=== PATIENT | female | born 1970 | race Caucasian/White ===

== ENCOUNTER 2022-06-06 10:06 | Outpatient (CLI) | payer BC, SELFPAY | END 2022-06-06 10:07 | disposition home or self-care (01) | PROVIDERS: PCP Family Medicine; Visit Provider Family Medicine | DX: R41.82 Altered mental status, unspecified (principal); R42 Dizziness and giddiness | CPT/HCPCS: A0425; A0427 ==

== ENCOUNTER 2022-06-06 10:30 | Emergency (ER) | payer BC, SELFPAY ==
[2022-06-06 10:36] VITALS: BP 118/86; PULSE 73; RESP 16; TEMP 36.5; O2SAT 100; BMI 21.3
--- NOTE | 2022-06-06 10:58 | ED.GENADULT ---
HPI - General Adult General Chief complaint: Syncope/Fainted Stated complaint: Syncopal Time Seen by Provider: 06/06/22 10:52 Source: patient Mode of arrival: EMS Limitations: no limitations History of Present Illness HPI narrative: 51-year-old female coming in today after a presyncopal episode at work. Patient was working with some heavy machinery that she had to move and her finger got pinched between 2 pieces heavy machinery. She states that is sent a jolt of pain up into her arm and made her feel lightheaded. She sat down with her head between her legs, but still felt faint so she went to lay down on a bench. She laid on the bench for a few minutes and then felt better. However by that time EMS had already been called and they recommended she be evaluated in the ED. She states that she did not lose consciousness. And she that she feels fine now. She denies any nausea or vomiting. She does have a history of migraine headaches but denies any headache today. She denies any recent illness. She denies any chest pain or palpitations. No abdominal discomfort. She denies any changes in her vision or hearing. No focal neurologic deficits or weakness. Patient is requesting discharge. Her past medical history significant for migraine headaches, depression and anxiety. She did suffer the loss of a child. She is on Imitrex as needed, daily amitriptyline, and daily Prozac. Related Data Home Medications Medication Instructions Recorded Confirmed amitriptyline 50 mg tablet mg 06/06/22 fluoxetine 20 mg capsule mg 06/06/22 hydroxyzine HCl 50 mg tablet mg 06/06/22 sumatriptan 20 mg/actuation nasal mg intranasal 06/06/22 spray (Imitrex) sumatriptan succinate 100 mg tablet mg PO 06/06/22 Allergies Allergy/AdvReac Type Severity Reaction Status Date / Time No Known Allergies Allergy Unknown Unverified 05/13/22 16:03 Review of Systems Status of ROS: Reports: 10 or more systems reviewed and unremarkable except as noted in History and below [facility] Social History Smoking Status: Never smoker Do you use any of these nicotine containing products: None Second hand tobacco smoke exposure: No How often do you have a drink containing alcohol: never How often do you have six or more drinks on one occasion: Never AUDIT-C Alcohol total score: 0 Non-prescribed substance use: denies use service: No Exam Narrative: Exam Narrative: Well-nourished well-developed patient in no acute distress. Alert and oriented. Answers questions appropriately. Mood and affect are appropriate. Thoughts are goal oriented and rational. No tangential or magical thinking noted. Patient speaks in full sentences without needing to catch their breath. Speech is not slurred or pressured. No word-finding difficulty. HEENT: Normocephalic atraumatic. Pupils are equally round reactive to light. Extraocular muscles are intact. Conjunctivae are moist without any icterus noted. Moist mucous membranes. Posterior pharynx is normal. Neck is soft without any lymphadenopathy or thyromegaly. No masses are appreciated. Cardiovascular: Heart is regular rate and rhythm S1 and S2 are present without any murmurs. Lungs: Clear to auscultation bilaterally no wheezes rhonchi or rales are appreciated. Patient takes deep breaths without any discomfort. Abdomen: Soft and nontender nondistended with normal bowel sounds. No guarding or rebound. No masses or organomegaly appreciated. Extremities: Bilateral lower extremities are without edema. Normal DP and PT pulses. Her pinched finger which is the middle finger on the left looks fine. There is no significant swelling, ecchymosis or erythema noted. Is not tender to palpation. Skin: Well perfused without any obvious rashes. Strength is 5/5 of the upper and lower extremities. Reflexes are 2+ and symmetric at the knees. Romberg sign is negative. Cranial nerves 3-12 are normal. [id number] is normal. [id number] is normal. There is no nystagmus either horizontally or vertically. Gait is normal. Const: Vital Signs, click to edit/add: Vital Signs - 24 hr 06/06/22 10:36 Temperature 97.7 F Pulse Rate [Left P ulse Oximeter] 73 Respiratory Rate 16 Blood Pressure [Ri ght Upper Arm] 118/86 Pulse Oximetry 100 Oxygen Delivery Me thod Room Air Course Vital Signs Vital signs: Initial Vital Signs Temperature 97.7 F 06/06/22 10:36 Temperature Source Temporal Artery Scan 06/06/22 10:36 Pulse Rate 73 06/06/22 10:36 Pulse Rhythm 06/06/22 10:36 Pulse Strength 3+ Normal 06/06/22 10:36 Respiratory Rate 16 06/06/22 10:36 Blood Pressure 118/86 06/06/22 10:36 Blood Pressure Mean 96 06/06/22 10:36 Blood Pressure Position Supine 06/06/22 10:36 Pulse Oximetry 100 06/06/22 10:36 Oxygen Delivery Method 06/06/22 10:36 Vital Signs Temperature 97.7 F 06/06/22 10:36 Pulse Rate 73 06/06/22 10:36 Respiratory Rate 16 06/06/22 10:36 Blood Pressure 118/86 06/06/22 10:36 Pulse Oximetry 100 06/06/22 10:36 Oxygen Delivery Method 06/06/22 10:36 Temperature 97.7 F 06/06/22 10:36 Pulse Rate 73 06/06/22 10:36 Respiratory Rate 16 06/06/22 10:36 Blood Pressure 118/86 06/06/22 10:36 Pulse Oximetry 100 06/06/22 10:36 Oxygen Delivery Method 06/06/22 10:36 Medical Decision Making MDM Narrative Medical decision making narrative: 51-year-old female status post a presyncopal episode after pinching her finger. No residual symptoms. At this time we discussed that likely she felt lightheaded secondary to pain. We discussed the need for re-evaluation of other symptoms recur. We discussed following up as needed. We discussed reasons to return to the ER. Patient felt comfortable with this and had no other questions. Discharge Plan Discharge Clinical Impression: Light-headed Patient Disposition: Home, Self-Care Condition: Improved Additional Instructions: Return to the ER if you develop similar symptoms. Return to the ER if you develop chest pain or shortness of breath. Otherwise follow-up with your primary care provider as needed. Prescriptions: No Action sumatriptan succinate 100 mg tablet PO Label Comments: TAKE 1 TABLET BY MOUTH TWICE DAILY NEEDED FOR MIGRAINE. GIVE AT A MINIUMUM OF 2 HOURS APART. MAX DOSE 200MG PER 24 HOURS hydroxyzine HCl 50 mg tablet Label Comments: TAKE 1/2 TO 1 TABLET BY MOUTH AT BEDTIME NEEDED amitriptyline 50 mg tablet sumatriptan [Imitrex] 20 mg/actuation spray,non-aerosol INTRANASAL Label Comments: SPRAY 1 SPRAY INTO THE NOSTRIL EVERY 2 HOURS NEEDED NO MORE THAN 2 SPRAYS IN 24 HOURS fluoxetine 20 mg capsule Follow Up/Referrals: Provider,Not a Local [Primary Care Provider] - Stand Alone Forms: [employer] Info Instructions
== END 2022-06-06 11:30 | disposition home or self-care (01) ==
LOC: ED 11:15
PROVIDERS: Emergency Provider Family Medicine; PCP Family Medicine
DX: R55 Syncope and collapse (principal)
CPT/HCPCS: 99282; 99283

== ENCOUNTER 2022-11-05 20:20 | Outpatient (CLI) | payer BC, SELFPAY | END 2022-11-05 20:21 | disposition home or self-care (01) | LOC: AMB 11-06 23:41 | PROVIDERS: PCP Family Medicine; Visit Provider Family Medicine | DX: R10.9 Unspecified abdominal pain (principal); R45.851 Suicidal ideations; T43.622A Poisoning by amphetamines, intentional self-harm, initial encounter; Y92.009 Unspecified place in unspecified non-institutional (private) residence as the place of occurrence of the external cause | CPT/HCPCS: A0425; A0427 ==

== ENCOUNTER 2022-11-05 20:52 | Inpatient (IN) | payer BC, SELFPAY ==
[2022-11-05] VITALS (7 sets, daily range): BP systolic 111–161; BP diastolic 64–83; PULSE 65–78; RESP 16–20; TEMP 36.6; O2SAT 96–100; BMI 20.4
--- NOTE | 2022-11-05 21:04 | ED.GENADULT ---
HPI - General Adult General Time Seen by Provider: 21:04 Date Seen: 11/05/22 Chief complaint: Abdominal Pain Stated complaint: Abdominal pain Time Seen by Provider: 11/05/22 20:53 Source: patient, EMS and RN notes reviewed Mode of arrival: EMS Limitations: no limitations History of Present Illness HPI narrative: Patient was brought in by EMS for concern of abdominal pain accompanied with subsequent nausea vomiting and dark tarry stools starting today. EMS was called to her house. They did give her 25 mcg of fentanyl and 2 mg IV Versed in route. She reportedly attempted to take Adderall last Friday in attempt to harm herself. She got this from a friend that she was with. She does not feel like it was Adderall as when she has taken Adderall in the past it felt much different. She states this did nothing. However, she states she blacked out and woken him is early with this friend. They then drove back. of last week she attempted to take 25 tablets of Advil p.m.. She has reportedly use some alcohol recently. She is presenting tonight because of the abdominal pain. Again, called EMS. She is denying acute suicidality at this time. Related Data Home Medications Medication Instructions Recorded Confirmed amitriptyline 50 mg tablet mg 06/06/22 fluoxetine 20 mg capsule mg 06/06/22 hydroxyzine HCl 50 mg tablet mg 06/06/22 sumatriptan 20 mg/actuation nasal mg intranasal 06/06/22 spray (Imitrex) sumatriptan succinate 100 mg tablet mg PO 06/06/22 Allergies Allergy/AdvReac Type Severity Reaction Status Date / Time No Known Allergies Allergy Unknown Unverified 11/05/22 23:19 Review of Systems Narrative: Limited on initial arrival due to patient's pain and medications given in route. [facility] Social History Smoking Status: Never smoker Do you use any of these nicotine containing products: None Second hand tobacco smoke exposure: No How often do you have a drink containing alcohol: never How often do you have six or more drinks on one occasion: Never AUDIT-C Alcohol total score: 0 Non-prescribed substance use: denies use service: No Exam Const: Vital Signs, click to edit/add: Vital Signs - 24 hr 11/05/22 21:01 11/05/22 21:07 11/05/22 22:01 Temperature 97.8 F Pulse Rate 74 Pulse Rate [Pulse Oximeter] 78 Respiratory Rate 20 20 Blood Pressure 111/76 Blood Pressure [Ri ght Upper Arm] 126/64 Pulse Oximetry 96 98 100 Oxygen Delivery Me thod Room Air 11/05/22 21:00 11/05/22 21:32 11/05/22 22:32 Temperature Pulse Rate 65 Pulse Rate [Pulse Oximeter] 78 74 Respiratory Rate 16 16 Blood Pressure 117/73 Blood Pressure [Ri ght Upper Arm] 161/83 H 114/71 Pulse Oximetry 100 100 100 Oxygen Delivery Me thod Room Air Room Air 11/05/22 23:01 Temperature Pulse Rate 67 Pulse Rate [Pulse Oximeter] Respiratory Rate Blood Pressure 112/80 Blood Pressure [Ri ght Upper Arm] Pulse Oximetry 96 Oxygen Delivery Me thod Documenting provider has reviewed patient's vital signs: yes Common normals: oriented x3 and alert General appearance: cooperative Nutritional appearance: thin Other: Was initially resting but after I came in started writhing in pain stating her belly hurt. Could open her eyes with prompting but kept him close most the time. Speech was normal when talking but often was moaning and groaning stating her abdomen hurt. When asked her to point were abdomen hurts she pointed to the left upper quadrant. HENMT: Common normals: normocephalic, head/scalp atraumatic, hearing grossly normal bilaterally, external ears normal, external nose normal, nasal mucous membranes and turbinates normal, moist oral mucous membranes, oropharynx normal, dentition normal and gingiva normal Head and scalp: normocephalic and atraumatic Nose: external nose normal and nasal mucous membranes and turbinates normal External ear: external ears normal Other: Has slightly round red lesion outside of the right lip that looks like it could be an early HSV lesion. Eye: Common normals: PERRL, EOMs intact bilaterally, conjunctivae normal and no scleral icterus Conjunctiva: conjunctiva(e) normal Pupil: PERRL Neck & C-Spine: Common normals: full ROM, no lymphadenopathy, supple, no meningeal signs, no JVD and thyroid normal Thyroid: thyroid normal Chest: Common normals: inspection of chest normal and palpation of chest normal Resp: Common normals: normal respiratory effort, no retractions, no use of accessory muscles and clear to auscultation bilaterally Auscultation: clear to auscultation bilaterally Cardio: Common normals: no JVD, regular rate, regular rhythm, S1 normal heart sound, S2 normal heart sound, no gallops, no clicks, no murmurs and no rub Rate: regular rate Rhythm: regular rhythm Heart sounds: S1 normal and S2 normal GI: Other: Patient is thin, has occasional bowel sounds. Certainly hear no rushing or tympanitic type bowel sounds. I feel no masses, she is complaining of diffuse pain throughout her abdomen. Cannot really say that she has rebound or guarding. She does ride during this time when I am attempting to palpate her abdomen. Extremity: Common normals: no calf tenderness and no pedal edema Neuro: Common normals: oriented x3, CN's II-XII intact bilaterally, moves all extremities, no focal motor deficits and no sensory deficits noted Sensorium/orientation: alert Meningeal signs: no meningeal signs Speech: speech normal Psych: Other: This time she is in pain, difficult to assess a true mental status on her. She did get Versed and fentanyl EN route with EMS. She is stating that she is not suicidal at this time but definitely endorses attempts multiple times recently to take medicines for the purposes of harming herself. Course Course Hospital Course: Patient will be on pulse oximetry and cardiac monitoring. Will need to get an EKG, nursing staff is going to call poison Control. We will be obtaining a full complement of labs. I would like to obtain a stool guaiac on her and will hopefully do that soon. Am going to give her Protonix 80 mg IV in the interim. She certainly could have an upper GI bleed. See no evidence any acute changes that make me concerned for esophageal varices. We need to further workup her complaint of abdominal pain and the potential recent ingestions. Both of these ingestions happened reportedly last week, no reported new ingestions. We will attempt to get toxicology done on her as quickly as possible. I will initiate 1 L of IV fluids. Right now her vitals are stable. Reevaluation(s) Reevaluation #1: Patient had about a 600 mL emesis. Will give her 1 dose of IV Zofran. Still do not have her EKG. Protonix is not been given yet. Time: 21:23 Reevaluation #2: Patient's stool guaiac was done. It is negative. She had scant amount of stool in the rectal vault. External anus was normal on inspection. Durand no masses in the rectal vault. Patient is moaning and complaining of abdominal pain. Have reviewed her labs. Her kidney function is completely normal, no really notable changes with any of her labs. We still have not collected urine. We will try 15 mg IV Toradol and obtain CT abdomen pelvis with IV contrast. Time: 22:19 Reevaluation #3: Have reviewed with patient the CT findings of small-bowel obstruction. She states she feels much better with the Toradol, pain is relieved. She is not nauseated right now. Again, patient did have a large emesis after arrival. She is advised to let us know if she is having further pain or nausea. Did discuss with her she may need to have NG tube placement. I have also ordered telehealth and she understands why we need to do this. She has not demonstrated acute suicidality at this time but did have the verbalized 2 attempts of pill ingestion last week. As far as abdominal surgeries, she states she has had 3 prior C-sections and hysterectomy nothing else. Poison Control had no concerns regarding any acute management from the ingestions last week, would only be management of any untoward affects found, which we have not. Time: 23:48 Consultations Consultation #1: Spoke with our surgeon Dr. Mcarthur. We will admit this patient to the hospitalist service, have paged of Pasquale. She will plan on seeing the patient tomorrow morning. Time: 23:52 Consultation #2: Have spoken to [facility] hospitalist, they accept care of this patient. Telehealth should be completed at some point but is not the most urgent need. Patient is not demonstrating acute suicidality but do think someone should do more further in-depth discussion with her regarding the events of last week. She needs acute management for her small-bowel obstruction at this time. Time: 00:18 Vital Signs Vital signs: Initial Vital Signs Pulse Rate 78 11/05/22 21:00 Pulse Rhythm 11/05/22 21:00 Pulse Strength 3+ Normal 11/05/22 21:00 Respiratory Rate 16 11/05/22 21:00 Respiratory Effort 11/05/22 21:00 Respiratory Depth Normal 11/05/22 21:00 Blood Pressure 161/83 H 11/05/22 21:00 Blood Pressure Mean 109 11/05/22 21:00 Blood Pressure Position Supine 11/05/22 21:00 Pulse Oximetry 100 11/05/22 21:00 Oxygen Delivery Method 11/05/22 21:00 Vital Signs Pulse Rate 78 11/05/22 21:00 Respiratory Rate 16 11/05/22 21:00 Blood Pressure 161/83 H 11/05/22 21:00 Pulse Oximetry 100 11/05/22 21:00 Oxygen Delivery Method 11/05/22 21:00 Temperature 97.8 F 11/05/22 21:01 Pulse Rate 67 11/05/22 23:01 Respiratory Rate 20 11/05/22 22:01 Blood Pressure 112/80 11/05/22 23:01 Pulse Oximetry 96 11/05/22 23:01 Oxygen Delivery Method 11/05/22 21:32 Medical Decision Making Lab Data Lab results reviewed: Yes I reviewed the patient's lab results Labs: Lab Results 11/05/22 11/05/22 11/05/22 Range/Units 21:00 21:31 21:31 WBC 8.95 (4.50-11.00) K/uL RBC 4.52 (4.00-5.20) m/uL Hgb 14.4 (12.0-16.0) gm/dL Hct 43.4 (33.0-51.0) % MCV 96 (80-100) fL MCH 32 (26-34) pg MCHC 33 (32-36) gm/dL RDW Coeff of Thao 12.2 (11.5-15.5) % Plt Count 340 (140-440) K/uL Neut % (Auto) 65.7 (42.0-72.0) % Lymph % (Auto) 27.7 (20-44) % Henderson % (Auto) 4.5 (0.0-11.0) % Eos % (Auto) 1.7 (0.0-7.0) % Baso % (Auto) 0.3 (0.0-3.0) % Neut # (Auto) 5.88 (1.7-7.0) K/uL Lymph # (Auto) 2.48 (0.90-2.90) K/uL Henderson # (Auto) 0.40 (0.00-0.90) K/UL Eos # (Auto) 0.15 (0.00-0.50) K/uL Baso # (Auto) 0.03 (0.00-0.30) K/uL INR (0.91-1.10) APTT (23-33) Seconds Sodium 141 (135-149) mmol/L Potassium 3.5 L (3.6-5.1) mmol/L Chloride 105 (96-114) mmol/L Carbon Dioxide 27 (20-32) mmol/L BUN 22 (7-30) mg/dL Creatinine 0.6 (0.5-1.5) mg/dL Estimated Creat Clear 90.32 Estimated GFR 108 ml/min Glucose 103 (60-115) mg/dL Lactate (0.5-1.9) mmol/L Calcium 9.4 (8.4-10.6) mg/dL Total Bilirubin 0.4 (0.1-1.5) mg/dL Direct Bilirubin 0.2 (0.0-0.5) mg/dL AST 23 (12-35) U/L ALT 17 (4-35) U/L Alkaline Phosphatase 75 (40-150) U/L Total Protein 7.4 (6.0-8.3) g/dL Albumin 4.4 (3.3-5.0) g/dL Lipase (23-300) U/L TSH (0.270-4.200) uIU/mL Free T4 (0.70-1.85) ng/dL Urine Color (Yellow) Urine Appearance (Clear) Urine pH (5.0-8.5) Ur Specific [place] (1.000-1.030) Urine Protein (Negative) Urine Glucose (UA) (Negative) Urine Ketones (Negative) Urine Blood (Negative) Urine Nitrite (Negative) Urine Bilirubin (Negative) Urine Urobilinogen (0.2-1.0) Ur Leukocyte Esterase (Negative) Urine RBC (0-2) Urine WBC (0-5) Ur Squamous Epith Cells (None-Few) Amorphous Sediment (None) Urine Bacteria (None) Urine Mucus (None) Urine HCG, Qual (Negative) Salicylates (1.0-10) mg/dL Urine Opiates Screen (Negative) Ur Oxycodone Screen (Negative) Urine Methadone Screen (Negative) Ur Propoxyphene Screen (Negative) Acetaminophen < 10.0 L (10.0-30.0) ug/mL Ur Barbiturates Screen (Negative) U Tricyclic Antidepress (Negative) Ur Phencyclidine Scrn (Negative) Ur Amphetamines Screen (Negative) U Methamphetamines Scrn (Negative) U Benzodiazepines Scrn (Negative) Urine Cocaine Screen (Negative) U Marijuana (THC) Screen (Negative) Ur Drug Screen Comment Ethyl Alcohol (0.01-0.03) % SARS-CoV-2 (PCR) Negative SARS-CoV-2 (Negative) POC Troponin I (0.01-0.04) ng/ml 11/05/22 11/05/22 11/05/22 Range/Units 21:31 21:31 21:31 WBC (4.50-11.00) K/uL RBC (4.00-5.20) m/uL Hgb (12.0-16.0) gm/dL Hct (33.0-51.0) % MCV (80-100) fL MCH (26-34) pg MCHC (32-36) gm/dL RDW Coeff of Thao (11.5-15.5) % Plt Count (140-440) K/uL Neut % (Auto) (42.0-72.0) % Lymph % (Auto) (20-44) % Henderson % (Auto) (0.0-11.0) % Eos % (Auto) (0.0-7.0) % Baso % (Auto) (0.0-3.0) % Neut # (Auto) (1.7-7.0) K/uL Lymph # (Auto) (0.90-2.90) K/uL Henderson # (Auto) (0.00-0.90) K/UL Eos # (Auto) (0.00-0.50) K/uL Baso # (Auto) (0.00-0.30) K/uL INR 0.90 L (0.91-1.10) APTT 29 (23-33) Seconds Sodium (135-149) mmol/L Potassium (3.6-5.1) mmol/L Chloride (96-114) mmol/L Carbon Dioxide (20-32) mmol/L BUN (7-30) mg/dL Creatinine (0.5-1.5) mg/dL Estimated Creat Clear Estimated GFR ml/min Glucose (60-115) mg/dL Lactate 1.3 (0.5-1.9) mmol/L Calcium (8.4-10.6) mg/dL Total Bilirubin (0.1-1.5) mg/dL Direct Bilirubin (0.0-0.5) mg/dL AST (12-35) U/L ALT (4-35) U/L Alkaline Phosphatase (40-150) U/L Total Protein (6.0-8.3) g/dL Albumin (3.3-5.0) g/dL Lipase 80 (23-300) U/L TSH (0.270-4.200) uIU/mL Free T4 (0.70-1.85) ng/dL Urine Color (Yellow) Urine Appearance (Clear) Urine pH (5.0-8.5) Ur Specific [place] (1.000-1.030) Urine Protein (Negative) Urine Glucose (UA) (Negative) Urine Ketones (Negative) Urine Blood (Negative) Urine Nitrite (Negative) Urine Bilirubin (Negative) Urine Urobilinogen (0.2-1.0) Ur Leukocyte Esterase (Negative) Urine RBC (0-2) Urine WBC (0-5) Ur Squamous Epith Cells (None-Few) Amorphous Sediment (None) Urine Bacteria (None) Urine Mucus (None) Urine HCG, Qual (Negative) Salicylates < 1.0 L (1.0-10) mg/dL Urine Opiates Screen (Negative) Ur Oxycodone Screen (Negative) Urine Methadone Screen (Negative) Ur Propoxyphene Screen (Negative) Acetaminophen (10.0-30.0) ug/mL Ur Barbiturates Screen (Negative) U Tricyclic Antidepress (Negative) Ur Phencyclidine Scrn (Negative) Ur Amphetamines Screen (Negative) U Methamphetamines Scrn (Negative) U Benzodiazepines Scrn (Negative) Urine Cocaine Screen (Negative) U Marijuana (THC) Screen (Negative) Ur Drug Screen Comment Ethyl Alcohol < 0.01 L (0.01-0.03) % SARS-CoV-2 (PCR) (Negative) POC Troponin I (0.01-0.04) ng/ml 11/05/22 11/05/22 11/05/22 Range/Units 21:31 21:31 21:31 WBC (4.50-11.00) K/uL RBC (4.00-5.20) m/uL Hgb (12.0-16.0) gm/dL Hct (33.0-51.0) % MCV (80-100) fL MCH (26-34) pg MCHC (32-36) gm/dL RDW Coeff of Thao (11.5-15.5) % Plt Count (140-440) K/uL Neut % (Auto) (42.0-72.0) % Lymph % (Auto) (20-44) % Henderson % (Auto) (0.0-11.0) % Eos % (Auto) (0.0-7.0) % Baso % (Auto) (0.0-3.0) % Neut # (Auto) (1.7-7.0) K/uL Lymph # (Auto) (0.90-2.90) K/uL Henderson # (Auto) (0.00-0.90) K/UL Eos # (Auto) (0.00-0.50) K/uL Baso # (Auto) (0.00-0.30) K/uL INR (0.91-1.10) APTT (23-33) Seconds Sodium (135-149) mmol/L Potassium (3.6-5.1) mmol/L Chloride (96-114) mmol/L Carbon Dioxide (20-32) mmol/L BUN (7-30) mg/dL Creatinine (0.5-1.5) mg/dL Estimated Creat Clear Estimated GFR ml/min Glucose (60-115) mg/dL Lactate (0.5-1.9) mmol/L Calcium (8.4-10.6) mg/dL Total Bilirubin (0.1-1.5) mg/dL Direct Bilirubin (0.0-0.5) mg/dL AST (12-35) U/L ALT (4-35) U/L Alkaline Phosphatase (40-150) U/L Total Protein (6.0-8.3) g/dL Albumin (3.3-5.0) g/dL Lipase (23-300) U/L TSH 5.540 H (0.270-4.200) uIU/mL Free T4 0.91 (0.70-1.85) ng/dL Urine Color (Yellow) Urine Appearance (Clear) Urine pH (5.0-8.5) Ur Specific [place] (1.000-1.030) Urine Protein (Negative) Urine Glucose (UA) (Negative) Urine Ketones (Negative) Urine Blood (Negative) Urine Nitrite (Negative) Urine Bilirubin (Negative) Urine Urobilinogen (0.2-1.0) Ur Leukocyte Esterase (Negative) Urine RBC (0-2) Urine WBC (0-5) Ur Squamous Epith Cells (None-Few) Amorphous Sediment (None) Urine Bacteria (None) Urine Mucus (None) Urine HCG, Qual (Negative) Salicylates (1.0-10) mg/dL Urine Opiates Screen (Negative) Ur Oxycodone Screen (Negative) Urine Methadone Screen (Negative) Ur Propoxyphene Screen (Negative) Acetaminophen (10.0-30.0) ug/mL Ur Barbiturates Screen (Negative) U Tricyclic Antidepress (Negative) Ur Phencyclidine Scrn (Negative) Ur Amphetamines Screen (Negative) U Methamphetamines Scrn (Negative) U Benzodiazepines Scrn (Negative) Urine Cocaine Screen (Negative) U Marijuana (THC) Screen (Negative) Ur Drug Screen Comment Ethyl Alcohol (0.01-0.03) % SARS-CoV-2 (PCR) (Negative) POC Troponin I 0.00 L (0.01-0.04) ng/ml 11/05/22 11/05/22 Range/Units 23:20 23:20 WBC (4.50-11.00) K/uL RBC (4.00-5.20) m/uL Hgb (12.0-16.0) gm/dL Hct (33.0-51.0) % MCV (80-100) fL MCH (26-34) pg MCHC (32-36) gm/dL RDW Coeff of Thao (11.5-15.5) % Plt Count (140-440) K/uL Neut % (Auto) (42.0-72.0) % Lymph % (Auto) (20-44) % Henderson % (Auto) (0.0-11.0) % Eos % (Auto) (0.0-7.0) % Baso % (Auto) (0.0-3.0) % Neut # (Auto) (1.7-7.0) K/uL Lymph # (Auto) (0.90-2.90) K/uL Henderson # (Auto) (0.00-0.90) K/UL Eos # (Auto) (0.00-0.50) K/uL Baso # (Auto) (0.00-0.30) K/uL INR (0.91-1.10) APTT (23-33) Seconds Sodium (135-149) mmol/L Potassium (3.6-5.1) mmol/L Chloride (96-114) mmol/L Carbon Dioxide (20-32) mmol/L BUN (7-30) mg/dL Creatinine (0.5-1.5) mg/dL Estimated Creat Clear Estimated GFR ml/min Glucose (60-115) mg/dL Lactate (0.5-1.9) mmol/L Calcium (8.4-10.6) mg/dL Total Bilirubin (0.1-1.5) mg/dL Direct Bilirubin (0.0-0.5) mg/dL AST (12-35) U/L ALT (4-35) U/L Alkaline Phosphatase (40-150) U/L Total Protein (6.0-8.3) g/dL Albumin (3.3-5.0) g/dL Lipase (23-300) U/L TSH (0.270-4.200) uIU/mL Free T4 (0.70-1.85) ng/dL Urine Color Yellow (Yellow) Urine Appearance Cloudy A (Clear) Urine pH 7.0 (5.0-8.5) Ur Specific [place] 1.015 (1.000-1.030) Urine Protein Trace A (Negative) Urine Glucose (UA) Negative (Negative) Urine Ketones Negative (Negative) Urine Blood Negative (Negative) Urine Nitrite Negative (Negative) Urine Bilirubin Negative (Negative) Urine Urobilinogen 0.2 (0.2-1.0) Ur Leukocyte Esterase 1+ A (Negative) Urine RBC 2-5 A (0-2) Urine WBC 5-10 A (0-5) Ur Squamous Epith Cells Few (None-Few) Amorphous Sediment Moderate A (None) Urine Bacteria Moderate A (None) Urine Mucus Moderate A (None) Urine HCG, Qual Negative (Negative) Salicylates (1.0-10) mg/dL Urine Opiates Screen Negative (Negative) Ur Oxycodone Screen Negative (Negative) Urine Methadone Screen Negative (Negative) Ur Propoxyphene Screen Negative (Negative) Acetaminophen (10.0-30.0) ug/mL Ur Barbiturates Screen Negative (Negative) U Tricyclic Antidepress Negative (Negative) Ur Phencyclidine Scrn Negative (Negative) Ur Amphetamines Screen Negative (Negative) U Methamphetamines Scrn Negative (Negative) U Benzodiazepines Scrn POSITIVE A* (Negative) Urine Cocaine Screen Negative (Negative) U Marijuana (THC) Screen Negative (Negative) Ur Drug Screen Comment See Note Ethyl Alcohol (0.01-0.03) % SARS-CoV-2 (PCR) (Negative) POC Troponin I (0.01-0.04) ng/ml Imaging Data CT scan - abdomen: Attestation: I have reviewed the pertinent imaging results. My impression: Reviewed her abdomen and pelvis CT with IV contrast, can see multiple small bowel dilated loops. Definitely is abnormal, await Radiology over-read. Radiologist's impression: Patient: CHUNG KIMBLE Facility:?[facility] Patient ID:?[id number] Site Patient ID:?[id number]. Site :?[id number] Study:?CT Abdomen/Pelvis w/ 56cc [id number] 11:28:12 PM Ordering Physician:?Sima Irene Final Report: INDICATION: Severe abdominal pain, nausea, vomiting, diarrhea. TECHNIQUE: CT abdomen and pelvis acquired with 100 cc Omnipaque 350 IV contrast. COMPARISON: None. FINDINGS: Lower chest: Mild pectus excavatum. The lung bases are clear. Liver: Unremarkable. Normal in size and attenuation. No suspicious masses. Gallbladder and bile ducts: Unremarkable. No stones or inflammation. No biliary dilatation. Pancreas: Unremarkable. No mass or inflammation. Spleen: Unremarkable. Normal in size. No masses. Adrenal glands: Unremarkable. No nodules. Kidneys: Punctate nonobstructing stone right kidney interpolar region. No suspicious masses, stones, or hydronephrosis. GI tract: Numerous dilated fluid-filled loops of small bowel throughout the abdomen with possible transition point in the right lower quadrant. Several distal small bowel loops as well as the colon are decompressed. Normal appendix. Vasculature: Normal caliber abdominal aorta with mild atherosclerotic calcification. Mesenteric arteries are patent. Lymph nodes: No lymphadenopathy. Peritoneum/Abdominal Wall: Unremarkable. No free air or significant free fluid. Pelvis: Status post hysterectomy Bones: Unremarkable for age. IMPRESSION: Numerous dilated fluid filled loops of small bowel throughout the abdomen, compatible with small bowel obstruction, with possible transition point in the right lower quadrant. Decompressed distal small bowel and colon. Punctate nonobstructing right nephrolith. Please note that all CT scans at this facility use dose modulation, iterative reconstruction, and/or weight-based dosing when appropriate to reduce radiation dose to as low as reasonably achievable. Dictated by Betito Grimes MD @ 11/05/2022 11:42:29 PM (Electronic Signature) ECG Data Attestation: I personally reviewed and interpreted this ECG as follows: (Sinus rhythm with sinus arrhythmia, 89 beats per minute. PVC seen. Underlying artifact. QT corrected 476 milliseconds.) Prior ECG tracings: not available for review Critical Care Time Critical Care Time Critical Care Time: No Discharge Plan Discharge Clinical Impression: Small bowel obstruction Patient Disposition: Admitted As Inpatient Condition: Stable
--- NOTE | 2022-11-05 21:10 | ED.NURSE ---
poison called. pt. took 25 tabs of advil/pm 38mg of benadryl and 200mg ibuprofen on friday at night, unsure what time. pt. comes in with severe abdominal cramping, black loose stools, nausea/vomting. denies drug use. recommendations: labs, ekg, supportive cars, iv fluids, lfts, kdney function. monitor for mental status changes, renal issues.
[2022-11-05] MEDS: 0.9 % SODIUM CHLORIDE 1000 ml 1,000 ML 500 ML IV (21:24)
[2022-11-05] MEDS: PANTOPRAZOLE SODIUM 40 MG INJ 80 MG IVP (21:25)
[2022-11-05 21:38] LABS: Lactate* 1.3 mmol/L (0.5-1.9)
[2022-11-05 21:42] LABS: Basophils Absolute Auto 0.03 K/uL (0.00-0.30); Basophils Percent Auto 0.3 % (0.0-3.0); Eosinophils Absolute Auto 0.15 K/uL (0.00-0.50); Eosinophils Percent Auto 1.7 % (0.0-7.0); Hematocrit 43.4 % (33.0-51.0); Hemoglobin* 14.4 gm/dL (12.0-16.0); Immature Granulocytes Abs Auto 0.01 K/uL (0.00-0.30); Immature Granulocytes Pct Auto 0.1 %; Lymphocytes Absolute Auto 2.48 K/uL (0.90-2.90); Lymphocytes Percent Auto 27.7 % (20-44); Mean Corpuscular HGB Conc 33 gm/dL (32-36); Mean Corpuscular Hemoglobin 32 pg (26-34); Mean Corpuscular Volume 96 fL (80-100); Monocytes Percent Auto 4.5 % (0.0-11.0); Neutrophils Absolute Auto 5.88 K/uL (1.7-7.0); Neutrophils Percent Auto 65.7 % (42.0-72.0); Platelet Count* 340 K/uL (140-440); RDW Coefficient of Variation % 12.2 % (11.5-15.5); Red Blood Count 4.52 m/uL (4.00-5.20); White Blood Count* 8.95 K/uL (4.50-11.00)
[2022-11-05 21:45] LABS: Slide Review Reflex No
[2022-11-05 21:54] LABS: Albumin* 4.4 g/dL (3.3-5.0); Chloride* 105 mmol/L (96-114); Potassium* 3.5 mmol/L (3.6-5.1); Sodium* 141 mmol/L (135-149)
[2022-11-05 21:56] LABS: Carbon Dioxide* 27 mmol/L (20-32); Creatinine* 0.6 mg/dL (0.5-1.5); Est. Creatinine Clearance* 90.32; Estimated Glomerular Filt Rate 108 ml/min; Lipase* 80 U/L (23-300); Prothrombin Time 12.7 Seconds
[2022-11-05 21:57] LABS: Alanine Aminotransferase* 17 U/L (4-35); Alkaline Phosphatase* 75 U/L (40-150); Aspartate Amino Transferase* 23 U/L (12-35); Bilirubin Direct* 0.2 mg/dL (0.0-0.5); Bilirubin Total* 0.4 mg/dL (0.1-1.5); Blood Urea Nitrogen* 22 mg/dL (7-30); Calcium* 9.4 mg/dL (8.4-10.6); Glucose* 103 mg/dL (60-115); Partial Thromboplastin Time* 29 Seconds (23-33); Total Protein* 7.4 g/dL (6.0-8.3)
[2022-11-05 22:02] LABS: Acetaminophen* < 10.0 ug/mL (10.0-30.0); Ethanol* < 0.01 % (0.01-0.03); Salicylate* < 1.0 mg/dL (1.0-10)
[2022-11-05] MEDS: ONDANSETRON 2 MG/ML inj 4 MG IVP (22:03)
--- NOTE | 2022-11-05 22:22 | CRLHL7_ITS ---
For Patients: As a result of the Century Cures Act, medical imaging exams and procedure reports are released immediately into your electronic medical record. You may view this report before your referring provider. If you have questions, please contact your health care provider. INDICATION: Severe abdominal pain, nausea, vomiting, diarrhea. TECHNIQUE: CT abdomen and pelvis acquired with 100 cc Omnipaque 350 IV contrast. COMPARISON: None. FINDINGS: Lower chest: Mild pectus excavatum. The lung bases are clear. Liver: Unremarkable. Normal in size and attenuation. No suspicious masses. Gallbladder and bile ducts: Unremarkable. No stones or inflammation. No biliary dilatation. Pancreas: Unremarkable. No mass or inflammation. Spleen: Unremarkable. Normal in size. No masses. Adrenal glands: Unremarkable. No nodules. Kidneys: Punctate nonobstructing stone right kidney interpolar region. No suspicious masses, stones, or hydronephrosis. GI tract: Numerous dilated fluid-filled loops of small bowel throughout the abdomen with possible transition point in the right lower quadrant. Several distal small bowel loops as well as the colon are decompressed. Normal appendix. Vasculature: Normal caliber abdominal aorta with mild atherosclerotic calcification. Mesenteric arteries are patent. Lymph nodes: No lymphadenopathy. Peritoneum/Abdominal Wall: Unremarkable. No free air or significant free fluid. Pelvis: Status post hysterectomy Bones: Unremarkable for age. IMPRESSION: Numerous dilated fluid filled loops of small bowel throughout the abdomen, compatible with small bowel obstruction, with possible transition point in the right lower quadrant. Decompressed distal small bowel and colon. Punctate nonobstructing right nephrolith. Please note that all CT scans at this facility use dose modulation, iterative reconstruction, and/or weight-based dosing when appropriate to reduce radiation dose to as low as reasonably achievable. Dictated by Betito Grimes MD @ 11/05/2022 11:42:29 PM (Electronically Signed)
[2022-11-05] MEDS: KETOROLAC 15 MG/ML inj IVP (22:27)
--- NOTE | 2022-11-05 22:34 | PC.NURSE ---
RN entered the patients room to administer Toradol. Patient was rolling around in the bed holding an emesis bag with 100mL of emesis. Patient continually stating just take it out, just take it out. Patient states that she believes that there is something physically stuck in her abdomen that is causing her pain and would like staff to remove it.
[2022-11-05 22:40] LABS: SARS PCR* Negative SARS-CoV-2 (Negative)
[2022-11-05 23:20] LABS: Free T4 Free Thyroxine* 0.91 ng/dL (0.70-1.85)
--- NOTE | 2022-11-05 23:21 | ED.NURSE ---
Patient cleared by poison control 2321. notified.
[2022-11-05 23:35] LABS: Appearance Urine Cloudy (Clear); Bilirubin Urine Negative (Negative); Blood Urine Negative (Negative); Color Urine Yellow (Yellow); Glucose Urine Negative (Negative); Ketones Urine Negative (Negative); Leukocyte Esterase Urine 1+ (Negative); Nitrite Urine Negative (Negative); Protein Urine Trace (Negative); Specific Gravity Urine 1.015 (1.000-1.030); Urobilinogen Urine 0.2 (0.2-1.0)
[2022-11-05 23:42] LABS: Squamous Epithelial Cell Urine Few (None-Few)
[2022-11-05 23:43] LABS: Amorphous Sediment Urine Moderate; Bacteria Urine Moderate; Mucus Urine Moderate; Ur HCG Qualitative* Negative (Negative)
[2022-11-05 23:45] LABS: Amphetamine Screen Urine Negative (Negative); Barbiturate Screen Urine Negative (Negative); Cannabinoid Screen Urine Negative (Negative); Cocaine Screen Urine Negative (Negative); Methadone Screen Urine Negative (Negative); Methamphetamines Screen Urine Negative (Negative); Opiate Screen Urine Negative (Negative); Oxycodone Screen Urine Negative (Negative); Phencyclidine Screen Urine Negative (Negative); Tricyclic Antidepressant Urine Negative (Negative)
[2022-11-05 23:48] LABS: Benzodiazepines Screen Urine POSITIVE (Negative)
[2022-11-06] VITALS (9 sets, daily range): BP systolic 83–116; BP diastolic 62–75; PULSE 60–82; RESP 16–20; TEMP 36.3–36.8; O2SAT 95–100; BMI 21.0
--- NOTE | 2022-11-06 00:45 | ED.NURSE ---
Report given to Olivia FORD on Med Surg. Nurse accepts patient. RN updated patient on admission and next steps.
--- NOTE | 2022-11-06 01:24 | PM.EN ---
Chart Event Note Chart Event Note: Pasquale Trevinoist Consultation Augusto Murdock 1970 This patient is a 52-year-old with past medical history for depression, migraine who presents with abdominal pain, nausea vomiting dark tarry stools. Patient states that the symptoms started earlier this afternoon EMS was called to her house. She describes the abdominal pain is diffuse and rated as severe. Of note the patient did take Adderall last week and attempted to commit suicide she got the prescription medication from a friend she was with. Home Medications: see EMR Pertinent Medical History: depression, migraine Pertinent Social History: Non-smoker, nonalcoholic Exam (performed via interactive video with assistance of bedside nurse): General: alert, cooperative, no acute distress HEENT: oral mucosa pink and moist without erythema Lungs: clear to auscultation bilaterally without crackle or wheeze CV: regular rate and rhythm without loud murmur rub or gallop Abd: Diffusely tender Ext: no pitting edema noted Skin: no rashes, bruises or lesions appreciated on gross visualization of exposed skin Neuro: alert, oriented x 3. facial muscles grossly intact, moves all extremities without any significant focal deficit appreciated by nurse Assessment and Plan: Small bowel obstruction identified on CT of the abdomen guaiac negative stool. Case discussed with on-call surgeon in the ED we will plan on keeping n.p.o. IV fluid, pain control overnight. We will start NG tube only if patient has continued vomiting Recent suicidal ideation mental health services consulted in the ED the patient currently denies any suicidal ideation DVT prophylaxis SCD CODE STATUS full code Thank you for including Pasquale Glynn in the patients care. This service is available for further assistance as requested by your care team by calling [phone].
[2022-11-06] MEDS: PROCHLORPERAZINE 5 MG/ML VIAL 10 MG IV (01:50)
[2022-11-06] MEDS: KETOROLAC 15 MG/ML inj IVP ×2 (01:51→16:26)
[2022-11-06] MEDS: 0.9 % SODIUM CH + KCL 20 mEq/L 1,000 ML 125 ML IV ×3 (01:53→16:22)
--- NOTE | 2022-11-06 05:55 | PC.NURSE ---
Pt is alert and oriented, pleasant and cooperative. Pt reports 2/10 pain in abdomen while at rest and 10/10 pain when moving in bed, pain managed with PRN Toradol. Pt reports intermittent nausea with movement, nausea managed with PRN Compazine. Pt is NPO and is up IND/SBA in room. Pt slept throughout night after admission.
[2022-11-06 08:27] LABS: HCO3 VBG 24 mmol/L (21-28); Lactate* 0.5 mmol/L (0.5-1.9); PCO2 VBG 38 mmHG (40-50); PO2 VBG 94.2 mmHG (25-47); pH VBG 7.404 (7.32-7.43)
[2022-11-06 08:31] LABS: Hematocrit 37.1 % (33.0-51.0); Hemoglobin* 12.4 gm/dL (12.0-16.0); Mean Corpuscular HGB Conc 33 gm/dL (32-36); Mean Corpuscular Hemoglobin 33 pg (26-34); Mean Corpuscular Volume 97 fL (80-100); Platelet Count* 266 K/uL (140-440); Red Blood Count 3.82 m/uL (4.00-5.20); White Blood Count* 6.08 K/uL (4.50-11.00)
[2022-11-06 08:37] LABS: Slide Review Reflex No
[2022-11-06 08:54] LABS: Chloride* 117 mmol/L (96-114); Potassium* 3.9 mmol/L (3.6-5.1); Sodium* 143 mmol/L (135-149)
[2022-11-06 08:56] LABS: Creatinine* 0.5 mg/dL (0.5-1.5); Est. Creatinine Clearance* 108.88; Estimated Glomerular Filt Rate 113 ml/min
[2022-11-06 08:57] LABS: Blood Urea Nitrogen* 21 mg/dL (7-30); Calcium* 8.5 mg/dL (8.4-10.6); Carbon Dioxide* 21 mmol/L (20-32); Glucose* 109 mg/dL (60-115)
[2022-11-06 09:02] LABS: C Reactive Protein* < 0.5 mg/dL (0.5-1.0)
--- NOTE | 2022-11-06 09:13 | PM.GSCN ---
History of Present Illness Consult details Date Seen: 11/06/22 Consult date: 11/06/22 Narrative: Patient was admitted from the emergency department last night for abdominal pain, nausea and vomiting. She does have a psychiatric history, which includes a suicide attempt last week with Adderall. On examination today the patient is very disengaged, has a flat affect and acting very lethargic. After leaving the room I did notice the patient sitting up in bed and more awake. When he came back into the room she did not appear lethargic and was more cooperative. She states that the pain started about 2 days ago. She has never had pain like this before. Her pain has improved since being in the hospital. She has not yet passed gas, but wants to try to use the bathroom this morning. No further episodes of vomiting since being in the emergency department. She does feel little bloated. Her surgical history is positive for C-sections x3 and hysterectomy. Review of Systems Status of ROS: Reports: unobtainable due to mental status (Patient not compliant with interview.) [facility] Social History Smoking Status: Current every day smoker Do you use any of these nicotine containing products: E-Cigarettes Second hand tobacco smoke exposure: No How often do you have a drink containing alcohol: never How often do you have six or more drinks on one occasion: Never AUDIT-C Alcohol total score: 0 Non-prescribed substance use: denies use Non-prescribed substance use details: pt stated that she bought some adoral from a friend and took that once a week ago. Caffeine: Yes (soda, coffee) service: No Meds Home Medications and Allergies Home Medications Medication Instructions Recorded Confirmed Type amitriptyline 50 mg tablet mg 06/06/22 History fluoxetine 20 mg capsule mg 06/06/22 History hydroxyzine HCl 50 mg tablet mg 06/06/22 History sumatriptan 20 mg/actuation nasal mg intranasal 06/06/22 History spray (Imitrex) sumatriptan succinate 100 mg tablet mg PO 06/06/22 History Allergies Allergy/AdvReac Type Severity Reaction Status Date / Time No Known Allergies Allergy Unknown Unverified 11/05/22 23:19 Exam Narrative: Exam Narrative: General: Lying in bed, not opening eyes but appears alert and oriented Respiratory: Equal breath rise bilaterally, maintained on room air CV: Regular rhythm rate, well perfused Abdomen: Mild distention, tenderness to palpation of lower abdomen with some guarding, no rebound. No bowel sounds. Neuro: Patient does move all extremities, no weakness and ambulates without difficulty Const: Vital Signs, click to edit/add: Vital Signs - 24 hr 11/05/22 21:01 11/05/22 21:07 11/05/22 22:01 Temperature 97.8 F Pulse Rate 74 Pulse Rate [Pulse Oximeter] 78 Respiratory Rate 20 20 Blood Pressure 111/76 Blood Pressure [Ri ght Upper Arm] 126/64 Pulse Oximetry 96 98 100 Oxygen Delivery Me thod Room Air 11/05/22 21:00 11/05/22 21:32 11/05/22 22:32 Temperature Pulse Rate 65 Pulse Rate [Pulse Oximeter] 78 74 Respiratory Rate 16 16 Blood Pressure 117/73 Blood Pressure [Ri ght Upper Arm] 161/83 H 114/71 Pulse Oximetry 100 100 100 Oxygen Delivery Me thod Room Air Room Air 11/05/22 23:01 11/06/22 00:13 11/06/22 01:11 Temperature 98.0 F Pulse Rate 67 64 Pulse Rate [Pulse Oximeter] Respiratory Rate 20 18 Blood Pressure 112/80 114/74 Blood Pressure [Ri ght Upper Arm] Pulse Oximetry 96 100 96 Oxygen Delivery Me thod Room Air 11/06/22 01:11 11/06/22 02:39 11/06/22 03:00 Temperature 98.3 F Pulse Rate Pulse Rate [Pulse Oximeter] Respiratory Rate 20 18 16 Blood Pressure Blood Pressure [Ri ght Upper Arm] Pulse Oximetry 100 99 Oxygen Delivery Me thod Room Air Room Air Results Labs Labs: Abnormal lab results 11/05/22 11/05/22 11/05/22 Range/Units 21:31 21:31 21:31 RBC (4.00-5.20) m/uL INR 0.90 L (0.91-1.10) VBG pCO2 (40-50) mmHG VBG pO2 (25-47) mmHG Potassium 3.5 L (3.6-5.1) mmol/L Chloride (96-114) mmol/L C-Reactive Protein (0.5-1.0) mg/dL TSH (0.270-4.200) uIU/mL Urine Appearance (Clear) Urine Protein (Negative) Ur Leukocyte Esterase (Negative) Urine RBC (0-2) Urine WBC (0-5) Amorphous Sediment (None) Urine Bacteria (None) Urine Mucus (None) Salicylates < 1.0 L (1.0-10) mg/dL Acetaminophen < 10.0 L (10.0-30.0) ug/mL U Benzodiazepines Scrn (Negative) Ethyl Alcohol < 0.01 L (0.01-0.03) % POC Troponin I (0.01-0.04) ng/ml 11/05/22 11/05/22 11/05/22 Range/Units 21:31 21:31 23:20 RBC (4.00-5.20) m/uL INR (0.91-1.10) VBG pCO2 (40-50) mmHG VBG pO2 (25-47) mmHG Potassium (3.6-5.1) mmol/L Chloride (96-114) mmol/L C-Reactive Protein (0.5-1.0) mg/dL TSH 5.540 H (0.270-4.200) uIU/mL Urine Appearance Cloudy A (Clear) Urine Protein Trace A (Negative) Ur Leukocyte Esterase 1+ A (Negative) Urine RBC 2-5 A (0-2) Urine WBC 5-10 A (0-5) Amorphous Sediment Moderate A (None) Urine Bacteria Moderate A (None) Urine Mucus Moderate A (None) Salicylates (1.0-10) mg/dL Acetaminophen (10.0-30.0) ug/mL U Benzodiazepines Scrn (Negative) Ethyl Alcohol (0.01-0.03) % POC Troponin I 0.00 L (0.01-0.04) ng/ml 11/05/22 11/06/22 11/06/22 Range/Units 23:20 08:19 08:19 RBC 3.82 L (4.00-5.20) m/uL INR (0.91-1.10) VBG pCO2 (40-50) mmHG VBG pO2 (25-47) mmHG Potassium (3.6-5.1) mmol/L Chloride 117 H (96-114) mmol/L C-Reactive Protein < 0.5 L (0.5-1.0) mg/dL TSH (0.270-4.200) uIU/mL Urine Appearance (Clear) Urine Protein (Negative) Ur Leukocyte Esterase (Negative) Urine RBC (0-2) Urine WBC (0-5) Amorphous Sediment (None) Urine Bacteria (None) Urine Mucus (None) Salicylates (1.0-10) mg/dL Acetaminophen (10.0-30.0) ug/mL U Benzodiazepines Scrn POSITIVE A* (Negative) Ethyl Alcohol (0.01-0.03) % POC Troponin I (0.01-0.04) ng/ml 11/06/22 Range/Units 08:19 RBC (4.00-5.20) m/uL INR (0.91-1.10) VBG pCO2 38 L (40-50) mmHG VBG pO2 94.2 H (25-47) mmHG Potassium (3.6-5.1) mmol/L Chloride (96-114) mmol/L C-Reactive Protein (0.5-1.0) mg/dL TSH (0.270-4.200) uIU/mL Urine Appearance (Clear) Urine Protein (Negative) Ur Leukocyte Esterase (Negative) Urine RBC (0-2) Urine WBC (0-5) Amorphous Sediment (None) Urine Bacteria (None) Urine Mucus (None) Salicylates (1.0-10) mg/dL Acetaminophen (10.0-30.0) ug/mL U Benzodiazepines Scrn (Negative) Ethyl Alcohol (0.01-0.03) % POC Troponin I (0.01-0.04) ng/ml Diabetes panel 11/05/22 11/06/22 Range/Units 21:31 08:19 Sodium 141 143 (135-149) mmol/L Potassium 3.5 L 3.9 (3.6-5.1) mmol/L Chloride 105 117 H (96-114) mmol/L Carbon Dioxide 27 21 (20-32) mmol/L BUN 22 21 (7-30) mg/dL Creatinine 0.6 0.5 (0.5-1.5) mg/dL Glucose 103 109 (60-115) mg/dL Calcium 9.4 8.5 (8.4-10.6) mg/dL AST 23 (12-35) U/L ALT 17 (4-35) U/L Alkaline Phosphatase 75 (40-150) U/L Total Protein 7.4 (6.0-8.3) g/dL Albumin 4.4 (3.3-5.0) g/dL Thyroid panel 11/05/22 Range/Units 21:31 TSH 5.540 H (0.270-4.200) uIU/mL Calcium panel 11/05/22 11/06/22 Range/Units 21: 08:19 Calcium 9.4 8.5 (8.4-10.6) mg/dL Albumin 4.4 (3.3-5.0) g/dL Pituitary panel 11/05/22 11/05/22 11/06/22 Range/Units 21: 21: 08:19 Sodium 141 143 (135-149) mmol/L Potassium 3.5 L 3.9 (3.6-5.1) mmol/L Chloride 105 117 H (96-114) mmol/L Carbon Dioxide 27 21 (20-32) mmol/L BUN 22 21 (7-30) mg/dL Creatinine 0.6 0.5 (0.5-1.5) mg/dL Glucose 103 109 (60-115) mg/dL Calcium 9.4 8.5 (8.4-10.6) mg/dL TSH 5.540 H (0.270-4.200) uIU/mL Adrenal panel 11/05/22 11/06/22 Range/Units 21:31 08:19 Sodium 141 143 (135-149) mmol/L Potassium 3.5 L 3.9 (3.6-5.1) mmol/L Chloride 105 117 H (96-114) mmol/L Carbon Dioxide 27 21 (20-32) mmol/L BUN 22 21 (7-30) mg/dL Creatinine 0.6 0.5 (0.5-1.5) mg/dL Glucose 103 109 (60-115) mg/dL Calcium 9.4 8.5 (8.4-10.6) mg/dL Total Bilirubin 0.4 (0.1-1.5) mg/dL AST 23 (12-35) U/L ALT 17 (4-35) U/L Alkaline Phosphatase 75 (40-150) U/L Total Protein 7.4 (6.0-8.3) g/dL Albumin 4.4 (3.3-5.0) g/dL All other labs normal. Imaging Abdomen CT scan report/results: report reviewed and image reviewed Assessment and Plan Assessment and plan (1) Small bowel obstruction: Status: Acute Plan Patient is a 52-year-old female who presented to the emergency department with clinical history and findings consistent with small-bowel obstruction. She does have a history of prior abdominal surgeries, making this obstruction likely secondary to adhesions. Vital signs have been stable overnight. She has had no further reported episodes of vomiting with improvement in her abdominal pain. On examination she has mild distention and tenderness in the lower quadrants, not yet passed gas. Recommend continuing with conservative management at this time. NPO, IV fluids. Would avoid narcotic and sedating medications. Patient was encouraged to ambulate the halls today.
--- NOTE | 2022-11-06 11:30 | PC.NURSE ---
PT NAPPING IN ROOM, NURSING TO CONTINUE TO ENCOURAGE AMBULATION IN [place]. NEEDS MORE ENCOURAGEMENT TO DO THIS. ADVANCED TO ICE CHIPS, PT REPORTS PASSING FLATUS. PT DENIES NAUSEA OR PAIN AT THIS TIME. SURGERY CONSULTED THIS AM, CONTINUE TO ATTEMPT CONSERVATIVE MEASURES AT THIS TIME. NS20K RUNNING, LINE PATENT.
--- NOTE | 2022-11-06 14:26 | PC.NURSE ---
PT REPORTED SLIGHT NAUSEA THIS AFTERNOON AFTER CONSUMING 1 CUP OF ICE CHIPS, PRINCIPAL CLERK TYPIST ENCOURAGED AMBULATING IN [place]ALLWAY TO HELP REDUCE THIS, PT DID THEN GET UP AND AMBULATE IN [place]. BS AT THIS TIME WERE ACTIVE. GOAL SET TO AMBULATE 2 MORE TIMES BEFORE 1900. PAIN REPORTED 2/10- PT NOW SLEEPING AGAIN IN BED.
--- NOTE | 2022-11-06 16:22 | PM.IMHP1 ---
Hospitalist- H&P: HPI History of Present Illness Date Seen: 11/06/22 Chief complaint: Mental Health Narrative: ADMISSION HISTORY AND PHYSICAL - HOSPITALIST Chief Complaint: Abdominal pain, vomiting, weakness HPI: This is a 52-year-old white female who has a history of suicidal ideations, cold sores, depression, substance abuse who presents via EMS last evening with acute abdominal pain, vomiting. Of note in the last 2 weeks she reports 2 different episodes of attentional drug overdose. The 1st was Adderall and the 2nd was Benadryl and ibuprofen. It is unclear she was hospitalized or had any other interventions. She is currently denying any suicidal ideation or homicidal ideation. She is in pain but clear minded. The pain was sudden onset earlier today. She thought it was food poisoning. She has generalized abdominal tenderness, vomiting and what she thought was a dark tarry stool. ER COURSE: She was given fluids, ECG was obtained. IV Toradol given for pain. CT abdomen pelvis showed small-bowel obstruction. Her rectal vault had no masses, guaiac negative. Hospital medicine team was asked to evaluate manage her ongoing nausea vomiting and small-bowel obstruction. CODE STATUS: Full code EMERGENCY CONTACT PLAN: Edita Lemus [phone]. Friend. I've updated the PFSH, medications and allergies in the [place] tabs. INVESTIGATIONS: LABS/MICRO/ECG/IMAGING Blood pressure 99/75. Pulse 69. Rest per 16. Temp 97.8?. O2 saturations 95% on room air. 53.8 kilos. BMI 21. CBC at admission and this morning are unremarkable. PH 7.4 BMP unremarkable. UA shows 1+ leukocyte esterase, trace protein, 5-10 white blood cells. Urine culture pending. Drug screen shows only positive benzos. And it is unclear if she received that during her treatment in the ED. Otherwise negative acetaminophen, alcohol. CT abdomen pelvis from the ER admission process Numerous dilated fluid filled loops of small bowel throughout the abdomen, compatible with small bowel obstruction, with possible transition point in the right lower quadrant. Decompressed distal small bowel and colon. Punctate nonobstructing right nephrolith. Is on potassium, normal saline at 125 mL an hour Compazine and Toradol p.r.n.. REVIEW OF SYSTEMS: 12-point ROS completed with patient and negative unless otherwise stated in HPI or below. PHYSICAL EXAM: CODE STATUS: CONSTITUTIONAL: Conversive, good historian. A/O. Knows setting and context. VITAL SIGNS: see record. HEENT: Normocephalic, atraumatic. PERRL, EOMI, conjunctivae pink, no scleral icterus. Ears and nose externally normal. Pharynx normal. NECK: No JVD. No carotid bruit, no thyromegaly, no adenopathy. CHEST: Clear to auscultation bilaterally HEART: S1 and S2 normal. No harsh murmurs. Edema MUSCULOSKELETAL: No gross joint deformity or swelling. NEURO: Cranial nerves intact. Grossly intact. No asymmetric findings. SKIN: No rashes, petechiae, concerning changes PSYCHIATRIC: Euthymic. ADMIT TO MEDSURG: FLOOR CARE DVT: Ambulation GI: IV PPI Time spent: 70 minutes examining patient, conferring with family and patient, care staff, developing care plan [facility] Medical History (Updated 11/06/22 @ 16:51 by Maritza Cortez MD) Cold sore History of substance abuse History of suicidal ideation Major depressive disorder Migraines Tobacco dependence Surgical History (Updated 11/06/22 @ 16:36 by Maritza Cortez MD) History of History of laparoscopic-assisted vaginal hysterectomy Social History Smoking Status: Current every day smoker Do you use any of these nicotine containing products: E-Cigarettes Second hand tobacco smoke exposure: No How often do you have a drink containing alcohol: never How often do you have six or more drinks on one occasion: Never AUDIT-C Alcohol total score: 0 Non-prescribed substance use: denies use Non-prescribed substance use details: pt stated that she bought some adoral from a friend and took that once a week ago. Caffeine: Yes (soda, coffee) service: No Meds Home Medications and Allergies Home Medications Medication Instructions Recorded Confirmed Type amitriptyline 50 mg tablet 50 mg PO HS 06/06/22 11/06/22 History fluoxetine 20 mg capsule 20 mg PO DAILY 06/06/22 11/06/22 History hydroxyzine HCl 50 mg tablet 50 mg PO HS PRN 06/06/22 11/06/22 History sumatriptan succinate 100 mg tablet 100 mg PO Q2H PRN 06/06/22 11/06/22 History Allergies Allergy/AdvReac Type Severity Reaction Status Date / Time No Known Allergies Allergy Unknown Unverified 11/05/22 23:19 Exam Const: Vital Signs, click to edit/add: Vital Signs - 24 hr 11/05/22 21:01 11/05/22 21:07 11/05/22 22:01 Temperature 97.8 F Pulse Rate 74 Pulse Rate [Left P ulse Oximeter] Pulse Rate [Pulse Oximeter] 78 Respiratory Rate 20 20 Blood Pressure 111/76 Blood Pressure [Le ft Arm] Blood Pressure [Ri ght Upper Arm] 126/64 Pulse Oximetry 96 98 100 Oxygen Delivery Me thod Room Air 11/05/22 21:00 11/05/22 21:32 11/05/22 22:32 Temperature Pulse Rate 65 Pulse Rate [Left P ulse Oximeter] Pulse Rate [Pulse Oximeter] 78 74 Respiratory Rate 16 16 Blood Pressure 117/73 Blood Pressure [Le ft Arm] Blood Pressure [Ri ght Upper Arm] 161/83 H 114/71 Pulse Oximetry 100 100 100 Oxygen Delivery Me thod Room Air Room Air 11/05/22 23:01 11/06/22 00:13 11/06/22 01:11 Temperature 98.0 F Pulse Rate 67 64 Pulse Rate [Left P ulse Oximeter] Pulse Rate [Pulse Oximeter] Respiratory Rate 20 18 Blood Pressure 112/80 114/74 Blood Pressure [Le ft Arm] Blood Pressure [Ri ght Upper Arm] Pulse Oximetry 96 100 96 Oxygen Delivery Me thod Room Air 11/06/22 01:11 11/06/22 02:39 11/06/22 03:00 Temperature 98.3 F Pulse Rate Pulse Rate [Left P ulse Oximeter] Pulse Rate [Pulse Oximeter] Respiratory Rate 20 18 16 Blood Pressure Blood Pressure [Le ft Arm] Blood Pressure [Ri ght Upper Arm] Pulse Oximetry 100 99 Oxygen Delivery Me thod Room Air Room Air 11/06/22 07:00 11/06/22 07:00 11/06/22 11:00 Temperature 98.1 F 97.8 F Pulse Rate Pulse Rate [Left P ulse Oximeter] 67 69 Pulse Rate [Pulse Oximeter] Respiratory Rate 16 16 16 Blood Pressure Blood Pressure [Le ft Arm] 100/68 99/75 Blood Pressure [Ri ght Upper Arm] Pulse Oximetry 95 95 Oxygen Delivery Me thod Room Air Room Air Hospitalist - H&P: Result Labs Labs: Short CBC 11/05/22 11/06/22 Range/Units 21:31 08:19 WBC 8.95 6.08 (4.50-11.00) K/uL Hgb 14.4 12.4 (12.0-16.0) gm/dL Hct 43.4 37.1 (33.0-51.0) % Plt Count 340 266 (140-440) K/uL BMP 11/05/22 11/06/22 21:31 08:19 Sodium 141 143 Potassium 3.5 L 3.9 Chloride 105 117 H Carbon Dioxide 27 21 BUN 22 21 Creatinine 0.6 0.5 Glucose 103 109 Calcium 9.4 8.5 Liver Function 11/05/22 Range/Units 21:31 Total Bilirubin 0.4 (0.1-1.5) mg/dL Direct Bilirubin 0.2 (0.0-0.5) mg/dL AST 23 (12-35) U/L ALT 17 (4-35) U/L Alkaline Phosphatase 75 (40-150) U/L Albumin 4.4 (3.3-5.0) g/dL Urine 11/05/22 Range/Units 23:20 Urine Color Yellow (Yellow) Urine Appearance Cloudy A (Clear) Urine pH 7.0 (5.0-8.5) Ur Specific [place] 1.015 (1.000-1.030) Urine Protein Trace A (Negative) Urine Glucose (UA) Negative (Negative) Assessment and Plan Assessment and plan (1) Small bowel obstruction: Problem comment: Patient has not needed an NG tube and has been relatively asymptomatic throughout day. She is tolerating ice chips. She is walking the halls. She has had no further vomiting. Only mild nausea. Mild abdominal pain. Thought she passed a little flatus this morning. There has been no bowel movements. -my plan is to keep her just on ice chips and sips of water. -keep her moving -advance diet when flatus is passing Status: Acute (2) Psychosocial stressors: Problem comment: Noted, longstanding Status: Acute (3) Panic attack as reaction to stress: Problem comment: Noted Status: Acute (4) Major depressive disorder: Problem comment: Takes Elavil and Prozac daily. P.r.n. hydroxyzine. Status: Acute (5) History of suicidal ideation: Problem comment: We should consider a DEC assessment prior to discharge. Status: Acute (6) Tobacco dependence: Problem comment: Noted Status: Acute
[2022-11-06] MEDS: AMITRIPTYLINE 25 MG TABLET 50 MG PO (20:29)
[2022-11-07] MEDS: 0.9 % SODIUM CH + KCL 20 mEq/L 1,000 ML 125 ML IV ×2 (00:19→08:05)
[2022-11-07 02:55] VITALS: BP 90/57; PULSE 66; RESP 16; TEMP 36.5; O2SAT 98
--- NOTE | 2022-11-07 05:17 | PC.NURSE ---
[id number] Pt stated she passed gas about three times, advanced diet to clears, patient drank water and chicken brother, tolerated both, denies pain, no N/V. pt states she is still passing gas, ambulating halls x1 this shift. slept during the night.
[2022-11-07 08:12] VITALS: BP 95/60; PULSE 71; RESP 18; TEMP 37.1; O2SAT 97
[2022-11-07 08:14] VITALS: PULSE 71; RESP 18
[2022-11-07] MEDS: FLUOXETINE HCL 20 MG CAPSULE PO (08:20)
[2022-11-07 11:07] VITALS: BP 107/74; PULSE 74; RESP 18; TEMP 36.9; O2SAT 97
--- NOTE | 2022-11-07 11:28 | PM.GSPN ---
Subjective Subjective Date Seen: 11/07/22 Interval history: Patient was seen walking the halls this morning. Last night she started to pass gas. She is also reporting resolution of her abdominal pain with no nausea or vomiting. She was given clear liquids and tolerated this well. She is feeling hungry this morning. Overall is much improved. Exam Narrative: Exam Narrative: General: Alert and oriented, no acute distress Abdomen: Soft, nontender nondistended. Const: Vital Signs, click to edit/add: Vital Signs - 24 hr 11/06/22 15:00 11/06/22 15:00 11/06/22 19:00 Temperature 97.6 F 97.8 F Pulse Rate [Left P ulse Oximeter] 69 60 82 Respiratory Rate 16 16 16 Blood Pressure [Le ft Arm] 116/73 83/62 L Pulse Oximetry 100 98 Oxygen Delivery Me thod Room Air Room Air 11/06/22 22:36 11/07/22 02:55 11/07/22 08:12 Temperature 97.4 F L 97.7 F 98.7 F Pulse Rate [Left P ulse Oximeter] 61 66 71 Respiratory Rate 16 16 18 Blood Pressure [Le ft Arm] 97/64 90/57 L 95/60 Pulse Oximetry 99 98 97 Oxygen Delivery Me thod Room Air Room Air Room Air 11/07/22 08:14 11/07/22 11:07 Temperature 98.4 F Pulse Rate [Left P ulse Oximeter] 71 74 Respiratory Rate 18 18 Blood Pressure [Le ft Arm] 107/74 Pulse Oximetry 97 Oxygen Delivery Me thod Room Air Labs/Imaging Labs Labs: Reviewed, no evidence of leukocytosis Progress Note: A&P Assessment and plan (1) Small bowel obstruction: Problem details: Patient has not needed an NG tube and has been relatively asymptomatic throughout day. She is tolerating ice chips. She is walking the halls. She has had no further vomiting. Only mild nausea. Mild abdominal pain. Thought she passed a little flatus this morning. There has been no bowel movements. -my plan is to keep her just on ice chips and sips of water. -keep her moving -advance diet when flatus is passing Status: Acute Assessment and Plan: Patient is a 52-year-old female with a now resolving small-bowel obstruction. Recommend continued slow advancement of diet. Encouraged patient to avoid narcotic pain medicine and continue with ambulating. Surgery to sign off at this time with other cares per hospitalist.
--- NOTE | 2022-11-07 13:38 | PC.SOCIAL ---
Social work note: Received call from pt's dtr, Sarina, stating she had concerned about pt's discharge. Sarina shared that pt lives alone for the past few years and is not able to take care of herself without help. Dtr stated she sometimes does not have food and her mother brings her food and helps her at home but that this is too much for the mother to continue to do. Dtr shared that the family was hoping pt could go into a [facility] where she could get care. Dtr states pt is a meth user and that this also makes her unable to care for herself. Dtr confirmed that pt is her own decision maker. orchard worker asked if dtr wants social worker delinquency prevention to get patients permission to share with the dtr the discharge plan that has been developed, but dtr stated she did not want social worker delinquency prevention to do this. orchard worker shared the information provided by dtr with . Dtr requested social worker delinquency prevention provide pt with information on substance treatments options and also to send this to the dtr at her email address. Dtr is aware that as her own decision maker, pt would need to agree to placement. Pt had already been discharged when social worker delinquency prevention went to meet with pt in room, so resources were emailed to dtr as requested.
--- NOTE | 2022-11-07 13:59 | PC.NURSE ---
discharge. pt has been pleasant and she is alert x3. abd pain for a short time after eating but then the pain went away with walking. Pt stated she is passing gas. he had a clear liquid breakfast with no problems. she was adat and she had some eggs 1 st time she had some abd pain and then later she had some more food with no pain. no N/V. she has been ambulating halls. IV was SL and later SL was d/c intact. went over discharge with pt. no new meds, appointments x2 and instructions and educations. no belonging sheet. all paperwork and belongings packed up. she was walked to [facility] to meet her mom.
--- NOTE | 2022-11-07 14:48 | PM.DS1 ---
DS: Providers Provider Date Seen: 11/07/22 Date of admission: 11/06/22 11:39 Primary care physician: Xenia Cruz MD Admitting Clinician: CHAVEZ Attending Physician on discharge: [facility] Date of Discharge: 11/07/22 DS: Diagnosis Discharge Diagnosis (1) Small bowel obstruction: Status: Acute Problem details: -unclear cause. Patient has never had intra peritoneal surgeries. She was successfully discharged with just conservative care. For supported with IV fluids, IV pain medicine and antiemetics. By the morning of November 07 she was passing gas and increasing her diet. (2) Psychosocial stressors: Status: Acute Problem details: Noted, longstanding (3) Major depressive disorder: Status: Acute Problem details: Takes Elavil and Prozac daily. P.r.n. hydroxyzine. (4) History of suicidal ideation: Status: Acute Problem details: Per her report she to suicidal ideations/attempts in the last month. Both were with pills. The 1st was with Adderall, the 2nd with Benadryl and Advil. She was lucid throughout her stay here. Her drug screen showed positive benzodiazepines but otherwise negative for other substances. Today she seems to have insight and would like a referral to psychotherapy and or med management. (5) Tobacco dependence: Status: Acute Problem details: Noted DS: Summary Hospital Course Hospital Course: HOSPITALIST DISCHARGE SUMMARY ATTENDING PHYSICIAN: Maritza Cortez MD FINAL DIAGNOSIS: Small-bowel obstruction, resolved with conservative care Major depressive disorder Suicidal ideation with previous attempt Suspected personality disorder HOSPITAL FOLLOWUP ISSUES: 1. Recent SBO without cause/history. If she has not had colonoscopy and or mammogram and other preventative care we recommend that her PCP complete a preventative visit. 2. Mental health issues. I am referring her to Harjeet John, psychiatry [employer], for outpatient follow-up. We faxed him a consult. REFERRALS WHILE ADMITTED: General surgery REFERRALS AFTER DISCHARGE: Primary care provider Psychotherapy/psychiatry BRIEF HOSPITAL COURSE: 52-year-old Augusto presented via EMS to our emergency room with abdominal pain. She was also experiencing panic and poor coping. She ultimately was diagnosed with a small-bowel obstruction. She did not need an NG tube. She did not require significant narcotics. She did well with Toradol and limited narcotics. She did not require surgery. She did well with belly rest. We supported her with IV fluids, antiemetics and analgesics. She was walking the marin and tolerating a near normal diet prior to discharge. Of note the patient tells the ER staff and nursing staff about previous suicidal actions. Apparently there was an overdose of Adderall and separate episode of overdose with Benadryl and ibuprofen. It is unclear to me the exact dates of this or if she was evaluated medically or by Psychiatry. She tells me that she is feeling much better. She tells me that she needs to get ?out of her head? and things are better. She states that she is no longer suicidal but would like to meet a new therapist as her previous 1 has retired. SUBSTANTIVE NOTATIONS ON IMAGING, LAB, MICROBIOLOGY/PATHOLOGY STUDIES: Afebrile. Blood pressure 107/74. Pulse 74. Respiratory rate 18. Pulse ox 97% on room air. CBC stable without leukocytosis, anemia or thrombocytopenia. Normal pH Normal electrolytes. Normal renal function. C reactive protein was unremarkable. Liver enzymes were negative. Lipase was negative. TSH was mildly elevated but her free T4 was normal. Urine drug screen revealed positive benzos but otherwise negative for illicit substances. Her Tylenol level and alcohol level were undetectable. CT abdomen pelvis Numerous dilated fluid filled loops of small bowel throughout the abdomen, compatible with small bowel obstruction, with possible transition point in the right lower quadrant. Decompressed distal small bowel and colon. Punctate nonobstructing right nephrolith. DISCHARGE MEDICATIONS: See Reconciled list - SIGNIFICANT CHANGES: None REVIEW OF SYSTEMS No new chest pain or dyspnea Pain controlled No voiding difficulties Tolerating diet challenge PHYSICAL EXAM: CONSTITUTIONAL: alert, calm, NAD VITAL SIGNS: see record. HEENT: Normocephalic, atraumatic. PERRL, EOMI, conjunctivae pink, no scleral icterus. Ears and nose externally normal. Pharynx normal. NECK: No JVD. No carotid bruit, no thyromegaly, no adenopathy. CHEST: Clear to auscultation bilaterally. HEART: S1 and S2 normal. Edema ABDOMEN: Soft, nontender. Normal bowel sounds. MUSCULOSKELETAL: No gross joint deformity or swelling. NEURO: Cranial nerves intact. Grossly intact. No asymmetric findings. SKIN: No rashes, petechiae, concerning changes PSYCHIATRIC: Mood euthymic. DISPOSITION: Home with family Time spent on discharge 37 minutes. Time Spent with Patient Time attestation: Total time spent providing and/or coordinating discharge services: Exam Const: Vital Signs, click to edit/add: Vital Signs - 24 hr 11/06/22 15:00 11/06/22 15:00 11/06/22 19:00 Temperature 97.6 F 97.8 F Pulse Rate [Left P ulse Oximeter] 69 60 82 Respiratory Rate 16 16 16 Blood Pressure [Le ft Arm] 116/73 83/62 L Pulse Oximetry 100 98 Oxygen Delivery Me thod Room Air Room Air 11/06/22 22:36 11/07/22 02:55 11/07/22 08:12 Temperature 97.4 F L 97.7 F 98.7 F Pulse Rate [Left P ulse Oximeter] 61 66 71 Respiratory Rate 16 16 18 Blood Pressure [Le ft Arm] 97/64 90/57 L 95/60 Pulse Oximetry 99 98 97 Oxygen Delivery Me thod Room Air Room Air Room Air 11/07/22 08:14 11/07/22 11:07 Temperature 98.4 F Pulse Rate [Left P ulse Oximeter] 71 74 Respiratory Rate 18 18 Blood Pressure [Le ft Arm] 107/74 Pulse Oximetry 97 Oxygen Delivery Me thod Room Air Discharge Plan Discharge Disposition: Home w/ Parent or Adult Date of Admission: 11/06/22 11:39 Attending Provider on Discharge: Maritza Cortez Primary Care Provider: Xenia Cruz Condition: Stable Anticipated Discharge Date/Time: 11/07/22 11:50 Discharge Medications: Continued sumatriptan succinate 100 mg tablet 100 mg PO Q2H PRN Label Comments: TAKE 1 TABLET BY MOUTH TWICE DAILY NEEDED FOR MIGRAINE. GIVE AT A MINIUMUM OF 2 HOURS APART. MAX DOSE 200MG PER 24 HOURS hydroxyzine HCl 50 mg tablet 50 mg PO HS PRN Label Comments: TAKE 1/2 TO 1 TABLET BY MOUTH AT BEDTIME NEEDED amitriptyline 50 mg tablet 50 mg PO HS fluoxetine 20 mg capsule 20 mg PO DAILY Discharge Orders: Discharge Order (Routine); Ordered 11/07/22 Ordered By: Maritza Cortez Patient Education: Acute Abdominal Pain (DC) Activity Level: Activity as Tolerated Discharge Diet: Regular Diet Detail: avoid greasy, complex/spicy foods for the next few weeks, eat bland foods and in small more frequent meals. Follow Up Appointments: Harjeet John [Other] - None (We will be having Harjeet reach out to the patient to set up an outpatient/consult. [facility] Harjeet John DNP, APRN, PMHNP-BC [email or web address] [facility] [id number] ) Xenia Cruz MD [Primary Care Provider] - 11/21/22 12:45 pm (f/u hospitalization also to see how her mental health is doing. At discharge I referred her to Harjeet John at [facility] - see if she made this appt.) Forms: [employer] Info Instructions Discharge Comments: Please fax discharge summary and face sheet to Harjeet John at [facility]. We will be having Harjeet reach out to the patient to set up an outpatient/consult. [facility] Harjeet John DNP, APRN, PMHNP-BC .[employer] [address] [facility] [id number]
== END 2022-11-07 14:05 | disposition home or self-care (01) | DRG 247 ==
LOC: ED 11-06 00:09 → MEDSURG 11-06 01:06
PROVIDERS: Family Medicine; Admitting Provider Family Medicine; Emergency Provider Family Medicine; PCP Family Medicine; Visit Provider Family Medicine
DX: K56.609 Unspecified intestinal obstruction, unspecified as to partial versus complete obstruction (principal); F41.0 Panic disorder [episodic paroxysmal anxiety]; F43.0 Acute stress reaction; F32.9 Major depressive disorder, single episode, unspecified; F17.200 Nicotine dependence, unspecified, uncomplicated; Z91.51 Personal history of suicidal behavior
CPT/HCPCS: 36415; 74177; 80048; 80076; 80143; 80179; 80306; 81001; 81025; 82077; 82803; 83605; 83690; 84439; 84443; 84484; 85025; 85027; 85610; 85730; 86140; 87086; 87635; 93005; 94761; 99284; 99285; A9270; C9113; G0378; J0780; J1885; J2405; J7030; Q9967

== ENCOUNTER 2022-12-04 09:00 | Outpatient (CLI) | payer BC, SELFPAY | END 2022-12-04 09:01 | disposition home or self-care (01) | LOC: AMB 12-05 14:25 | PROVIDERS: PCP Family Medicine; Visit Provider Family Medicine | DX: G43.909 Migraine, unspecified, not intractable, without status migrainosus (principal); R11.2 Nausea with vomiting, unspecified | CPT/HCPCS: A0425; A0427 ==

== ENCOUNTER 2022-12-04 09:27 | Emergency (ER) | payer BC, SELFPAY ==
[2022-12-04] VITALS (15 sets, daily range): BP systolic 93–122; BP diastolic 59–80; PULSE 75–105; RESP 18; TEMP 36.6; O2SAT 94–100; BMI 21.3
--- NOTE | 2022-12-04 10:13 | ED.HA ---
HPI - Headache General Time Seen by Provider: 10:13 Date Seen: 12/04/22 Chief Complaint: Headache/Migraine Stated Complaint: Migraine Time Seen by Provider: 12/04/22 10:13 Source: patient, RN notes reviewed and old records reviewed Mode of arrival: ambulatory Limitations: no limitations History of Present Illness HPI Narrative: Augusto is a very pleasant 52-year-old female who tells me she has a history of migraines otherwise healthy who comes to the emergency room with complaints headache and migraine via EMS. EMS did give patient morphine and Zofran prior to arrival. Patient notes that she has had a history of migraines for approximately 2 years and had been seeing Neurology. Patient typically uses sumatriptan but unfortunately the pharmacy has been out of this. She notes that her headaches have actually been somewhat improved since they started 2 years ago and thus she has stopped seeing a neurologist. However, patient had the onset of a headache yesterday that is described as right zoroastrianism and right forehead that is typical for her. This does cause photophobia and vomiting. She has not had anything unusual about this headache and denies neck pain, fever, cough cold congestion, numbness or tingling of the extremities. She denies tobacco use, drug use, recent falls. Again, states that this is a typical migraine for her. She does note that over this past weekend she had a headache and tried Zomig and that worked very well for her on FridayDecember 01. She notes that this is again a typical migraine for her. She denies any fevers chills or COVID and no symptoms out of the ordinary. Related Data Home Medications Medication Instructions Recorded Confirmed amitriptyline 50 mg tablet 50 mg PO HS 06/06/22 11/06/22 fluoxetine 20 mg capsule 20 mg PO DAILY 06/06/22 11/06/22 hydroxyzine HCl 50 mg tablet 50 mg PO HS PRN 06/06/22 11/06/22 sumatriptan succinate 100 mg tablet 100 mg PO Q2H PRN 06/06/22 11/06/22 Allergies Allergy/AdvReac Type Severity Reaction Status Date / Time No Known Allergies Allergy Unknown Verified 12/04/22 09:40 Review of Systems Status of ROS: Reports: 10 or more systems reviewed and unremarkable except as noted in History and below Const: Denies: fever or chills Eyes: Reports: light sensitivity and other; Denies: change in vision ENMT: Denies: throat pain, neck pain or throat swelling Cardio: Reports: lightheadedness; Denies: chest pain, palpitations, swelling of feet/ankles or shortness of breath with exertion Resp: Denies: shortness of breath or cough GI: Reports: nausea and vomiting; Denies: abdominal pain or diarrhea : Denies: painful urination Musculo: Denies: neck pain Integ/Breast: Denies: rash or itching Neuro: Reports: headache and dizziness; Denies: numbness in extremities, weakness in extremities or lack of coordination Endo: Denies: excessive urination Allergy/Immuno: Denies: throat swelling PFSH PFS Medical History Cold sore History of substance abuse History of suicidal ideation Major depressive disorder Migraines Tobacco dependence Surgical History History of History of laparoscopic-assisted vaginal hysterectomy Social History Smoking Status: Current every day smoker Do you use any of these nicotine containing products: E-Cigarettes Second hand tobacco smoke exposure: No How often do you have a drink containing alcohol: never How often do you have six or more drinks on one occasion: Never AUDIT-C Alcohol total score: 0 Non-prescribed substance use: denies use Non-prescribed substance use details: pt stated that she bought some adoral from a friend and took that once a week ago. Caffeine: Yes (soda, coffee) service: No Exam Narrative: Exam Narrative: Patient is lying comfortably in room 2. She is tending to keep her eyes closed but is fully alert. EM is full. Her pupils are quite small. Head is atraumatic normocephalic. She has exam is patches in her scalp. Neck is supple without lymphadenopathy and I see that she has full range of motion with no guarding. Heart with regular rate and rhythm and lungs are clear in all lung gaffney. Abdomen soft nontender. Legs without calf tenderness. Moving all extremities. Strength and motor is intact. GCS of 15. Const: Vital Signs, click to edit/add: Vital Signs - 24 hr 12/04/22 09:31 12/04/22 09:43 12/04/22 10:00 Temperature 98 F Pulse Rate 104 H 99 Pulse Rate [Pulse Oximeter] 105 H Respiratory Rate 18 Blood Pressure Blood Pressure [Ri ght Upper Arm] 122/78 Pulse Oximetry 94 97 97 Oxygen Delivery Me thod Room Air 12/04/22 10:01 12/04/22 10:31 12/04/22 10:32 Temperature Pulse Rate 99 81 Pulse Rate [Pulse Oximeter] Respiratory Rate Blood Pressure 118/77 115/80 Blood Pressure [Ri ght Upper Arm] Pulse Oximetry 97 97 Oxygen Delivery Me thod 12/04/22 11:00 12/04/22 11:01 12/04/22 11:02 Temperature Pulse Rate 80 76 80 Pulse Rate [Pulse Oximeter] Respiratory Rate Blood Pressure 121/65 Blood Pressure [Ri ght Upper Arm] Pulse Oximetry 100 95 100 Oxygen Delivery Me thod 12/04/22 11:30 12/04/22 11:31 12/04/22 12:00 Temperature Pulse Rate 78 75 92 Pulse Rate [Pulse Oximeter] Respiratory Rate Blood Pressure 98/64 Blood Pressure [Ri ght Upper Arm] Pulse Oximetry 98 98 Oxygen Delivery Me thod 12/04/22 12:01 12/04/22 12:30 12/04/22 12:31 Temperature Pulse Rate 83 84 85 Pulse Rate [Pulse Oximeter] Respiratory Rate Blood Pressure 93/59 L 107/75 Blood Pressure [Ri ght Upper Arm] Pulse Oximetry 99 98 98 Oxygen Delivery Me thod Eye: Direct Ophthalmoscopy: photophobia Course Course Hospital Course: At this time patient is complaining of routine migraine. I did ask her multiple times if there is anything unusual about this. She does state this is a strong her headache but in the same location. She does state that she has relief of Toradol. Did give her the option of Toradol or staying for Reglan/Benadryl/Toradol and IV fluids and she picked the latter. Reevaluation(s) Reevaluation #1: Patient notes that her headache is now down to a 1 or less from severe when she 1st arrived. She states that she is still a little dizzy and lightheaded but the nausea is also gone. She feels she is ready to go home. Reevaluation #2: I was called back into patient's room after I placed her discharge orders. She told nursing staff that she still feels dizzy and that we are trying to kick her out soon. I was quite confused about this a based on our previous conversation. I did assure her that the dizziness is likely from the Benadryl and Reglan concoction. She does confirm that her headache is almost completely gone. I do offer her some Ativan and she is light wanting to do that with at injection and I order Ativan 0.5 mg IM. Vital Signs Vital signs: Initial Vital Signs Temperature 98 F 12/04/22 09:31 Temperature Source Temporal Artery Scan 12/04/22 09:31 Pulse Rate 105 H 12/04/22 09:31 Pulse Rhythm 12/04/22 09:31 Respiratory Rate 18 12/04/22 09:31 Blood Pressure 122/78 12/04/22 09:31 Blood Pressure Mean 92 12/04/22 09:31 Pulse Oximetry 94 12/04/22 09:31 Oxygen Delivery Method 12/04/22 09:31 Vital Signs Temperature 98 F 12/04/22 09:31 Pulse Rate 105 H 12/04/22 09:31 Respiratory Rate 18 12/04/22 09:31 Blood Pressure 122/78 12/04/22 09:31 Pulse Oximetry 94 12/04/22 09:31 Oxygen Delivery Method 12/04/22 09:31 Temperature 98 F 12/04/22 09:31 Pulse Rate 85 12/04/22 12:31 Respiratory Rate 18 12/04/22 09:31 Blood Pressure 107/75 12/04/22 12:31 Pulse Oximetry 98 12/04/22 12:31 Oxygen Delivery Method 12/04/22 09:31 MDM - Headache MDM Narrative Medical decision making narrative: 1. Migraine-patient had almost complete resolution of her pain with Reglan 10 mg IV piggyback, Benadryl 50 mg IV and Toradol 15 mg IV and 1 L of normal saline. Her nausea resolved. She did receive additional Ativan 0.5 mg because she was feeling somewhat dizzy. This also helped greatly and she was able to be discharged home. No evidence of nuchal rigidity, med and diet is and vital signs were very reassuring today. 2. Disposition-return for worsening symptoms and as needed. Note under past medical history there is a note describing suicidal ideation and gestures. I did confirm that this is an old note although I do not know what date this comes from. Nursing assessment of safety and suicidal ideation negative today. Medical Records Attestation: I reviewed the patient's medical records. Lab Data Attestation: I reviewed the patient's lab results. Discharge Plan Discharge Clinical Impression: Migraine Patient Disposition: Home, Self-Care Condition: Improved Additional Instructions: Insure that someone picks up your prescription for sumatriptan. Push fluids. Please rest and sleep this afternoon. I would resume contact with your neurologist. Return as needed. Prescriptions: No Action sumatriptan succinate 100 mg tablet 100 mg PO Q2H PRN Label Comments: TAKE 1 TABLET BY MOUTH TWICE DAILY NEEDED FOR MIGRAINE. GIVE AT A MINIUMUM OF 2 HOURS APART. MAX DOSE 200MG PER 24 HOURS hydroxyzine HCl 50 mg tablet 50 mg PO HS PRN Label Comments: TAKE 1/2 TO 1 TABLET BY MOUTH AT BEDTIME NEEDED amitriptyline 50 mg tablet 50 mg PO HS fluoxetine 20 mg capsule 20 mg PO DAILY Follow Up/Referrals: Xenia Cruz MD [Primary Care Provider] - Stand Alone Forms: [employer] Info Instructions
[2022-12-04] MEDS: KETOROLAC 15 MG/ML inj IVP (10:35)
[2022-12-04] MEDS: 0.9 % SODIUM CHLORIDE 1000 ml 1,000 ML IV (10:35)
[2022-12-04] MEDS: diphenhydrAMINE 50 MG/ML inj IVP (10:35)
[2022-12-04] MEDS: METOCLOPRAMIDE HCL 10 MG in 0.9 % SODIUM CHLORIDE 100 ml 100 ML 306 MG IVPB (10:41)
[2022-12-04] MEDS: LORazepam 2 MG/ML inj 0.5 MG IM (13:09)
== END 2022-12-04 13:15 | disposition home or self-care (01) ==
PROVIDERS: Emergency Provider Family Medicine; PCP Family Medicine
DX: G43.909 Migraine, unspecified, not intractable, without status migrainosus (principal)
CPT/HCPCS: 96365; 96372; 96375; 99283; 99284; J1200; J1885; J2060; J2765; J7030

== ENCOUNTER 2023-06-03 13:36 | Emergency (ER) | payer BC, SELFPAY ==
[2023-06-03 13:42] VITALS: BP 114/70; PULSE 93; RESP 20; TEMP 36.4; O2SAT 98; BMI 23.9
[2023-06-03 14:10] LABS: Basophils Absolute Auto 0.04 K/uL (0.00-0.30); Basophils Percent Auto 0.4 % (0.0-3.0); Eosinophils Absolute Auto 0.12 K/uL (0.00-0.50); Eosinophils Percent Auto 1.3 % (0.0-7.0); Hematocrit 43.2 % (33.0-51.0); Hemoglobin* 14.2 gm/dL (12.0-16.0); Immature Granulocytes Abs Auto 0.11 K/uL (0.00-0.30); Immature Granulocytes Pct Auto 1.2 %; Lymphocytes Percent Auto 14.8 % (20-44); Mean Corpuscular HGB Conc 33 gm/dL (32-36); Mean Corpuscular Hemoglobin 32 pg (26-34); Mean Corpuscular Volume 96 fL (80-100); Neutrophils Percent Auto 79.3 % (42.0-72.0); Platelet Count* 338 K/uL (140-440); RDW Coefficient of Variation % 12.3 % (11.5-15.5); Red Blood Count 4.51 m/uL (4.00-5.20)
[2023-06-03 14:14] LABS: Slide Review Reflex No
[2023-06-03] MEDS: 0.9 % SODIUM CHLORIDE 1000 ml 1,000 ML IV ×2 (14:22→18:49)
[2023-06-03] MEDS: ONDANSETRON 2 MG/ML inj 4 MG IVP (14:22)
[2023-06-03] MEDS: diphenhydrAMINE 50 MG/ML inj 25 MG IVP (14:25)
[2023-06-03] MEDS: KETOROLAC 30 MG/ML inj IVP (14:26)
[2023-06-03 14:29] LABS: Chloride* 106 mmol/L (96-114); Potassium* 3.5 mmol/L (3.6-5.1); Sodium* 140 mmol/L (135-149)
[2023-06-03 14:32] LABS: Anion Gap 7 mEq/L (7-15); Carbon Dioxide* 27 mmol/L (20-32); Creatinine* 0.6 mg/dL (0.5-1.5); Est. Creatinine Clearance* 90.73; Estimated Glomerular Filt Rate 108 ml/min
[2023-06-03 14:33] LABS: Blood Urea Nitrogen* 22 mg/dL (7-30); Calcium* 9.2 mg/dL (8.4-10.6); Glucose* 115 mg/dL (60-115)
[2023-06-03] MEDS: dexAMETHasone 4 MG/ML VIAL 8 MG IV (14:45)
[2023-06-03 15:00] VITALS: BP 122/73; PULSE 76; O2SAT 99
--- NOTE | 2023-06-03 15:00 | ED.NURSE ---
Edith was unable to complete their assessment as they stated the pt was too sleepy and not alert enough
--- NOTE | 2023-06-03 15:07 | ED_ITS ---
HPI - General Adult General Chief complaint: Headache/Migraine Stated complaint: Head/body aches Time Seen by Provider: 06/03/23 13:47 Source: patient Limitations: other History of Present Illness HPI narrative: 52-year-old female coming in today with a migraine headache. At the time of arrival to the ER I am unable to interview the patient if she is not answering questions and she is writhing in pain in bed. Related Data Home Medications Medication Instructions Recorded Confirmed amitriptyline 50 mg tablet 50 mg PO HS 06/06/22 11/06/22 fluoxetine 20 mg capsule 20 mg PO DAILY 06/06/22 11/06/22 hydroxyzine HCl 50 mg tablet 50 mg PO HS PRN 06/06/22 11/06/22 sumatriptan succinate 100 mg tablet 100 mg PO Q2H PRN 06/06/22 11/06/22 Allergies Allergy/AdvReac Type Severity Reaction Status Date / Time No Known Allergies Allergy Unknown Verified 06/03/23 13:46 Review of Systems Status of ROS: Reports: unobtainable due to medical condition PFSH PFS Medical History Tobacco dependence ?F17.200 - Nicotine dependence, unspecified, uncomplicated (ICD-10) History of suicidal ideation ?Z86.59 - Personal history of other mental and behavioral disorders (ICD-10) History of substance abuse ?F19.11 - Other psychoactive substance abuse, in remission (ICD-10) Migraines ?G43.909 - Migraine, unspecified, not intractable, without status migrainosus (ICD-10) Cold sore ?B00.1 - Herpesviral vesicular dermatitis (ICD-10) Major depressive disorder ?F32.9 - Major depressive disorder, single episode, unspecified (ICD-10) Surgical History History of laparoscopic-assisted vaginal hysterectomy ?Z90.710 - Acquired absence of both cervix and uterus (ICD-10) History of ?Z98.891 - History of uterine scar from previous surgery (ICD-10) Social History Smoking Status: Current every day smoker Do you use any of these nicotine containing products: E-Cigarettes Second hand tobacco smoke exposure: No How often do you have a drink containing alcohol: never How often do you have six or more drinks on one occasion: Never AUDIT-C Alcohol total score: 0 Non-prescribed substance use: former substance user Non-prescribed substance use details: meth Caffeine: Yes (soda, coffee) service: No Exam Narrative: Exam Narrative: Well-nourished well-developed patient writhing in pain, unable to speak. Moaning. HEENT: Normocephalic atraumatic. Pupils are equally round reactive to light. Extraocular muscles are intact. Conjunctivae are moist without any icterus noted. Moist mucous membranes. Posterior pharynx is normal. Neck is soft without any lymphadenopathy or thyromegaly. No masses are appreciated. Cardiovascular: Heart is regular rate and rhythm S1 and S2 are present without any murmurs. Lungs: Clear to auscultation bilaterally no wheezes rhonchi or rales are appreciated. Patient takes deep breaths without any discomfort. Abdomen: Soft and nontender nondistended with normal bowel sounds. No guarding or rebound. No masses or organomegaly appreciated. Extremities: Bilateral lower extremities are without edema. Normal DP and PT pulses. Skin: Well perfused without any obvious rashes. Const: Vital Signs, click to edit/add: Vital Signs - 24 hr 06/03/23 13:42 06/03/23 15:00 06/03/23 15:30 Temperature 97.5 F L Pulse Rate [Pulse Oximeter] 93 76 94 Respiratory Rate 20 Blood Pressure [Ri ght Upper Arm] 114/70 122/73 109/86 Pulse Oximetry 98 99 100 Oxygen Delivery Me thod Room Air Room Air Room Air 06/03/23 16:00 06/03/23 16:30 06/03/23 17:00 Temperature Pulse Rate [Pulse Oximeter] 98 101 H 103 H Respiratory Rate Blood Pressure [Ri ght Upper Arm] 118/77 113/69 107/69 Pulse Oximetry 97 97 95 Oxygen Delivery Me thod Room Air Room Air Course Course Hospital Course: IV was established and patient received a L of normal saline, Toradol, Zofran, Benadryl and dexamethasone. This did help her symptoms quite a bit and she was able to have a conversation following. She tells me that her headache started this morning and that it feels very similar to previous migraine headaches. She does take Imitrex 100 mg as needed however she has run out of her month's supply. She states that 2 weeks ago she moved to a different apartment and since then has been getting more frequent headaches. She also takes amitriptyline at night. She tells me that she has been abusing Adderall and that she stop taking it 2 weeks ago. She tells me that she feels constant sadness from her son's passing 3 years ago, he was 28 years old. She states that nothing seems to make the sadness go away. She states that she is currently in therapy however has not gone in the last 2 weeks. She tells me that she has thought of killing herself in the past however she has 2 other children that she would like to stay alive for. I asked her if she would like to speak to a counselor here and she said yes. Shortly after I left the room she told nursing staff that her headache was back. Patient was very tearful and started moaning and rolling back and forth in bed again. I did give her 0.5 mg of IV Ativan and this made her very sleepy and she was able to sleep for about an hour. I did try to do a dec assessment: The 1st time she was unable to wake up and do it. The 2nd time she was awake however she started dry heaving to the point where she could not speak and dec eventually gave up. At this time I did go to see the patient again, she was sitting up in bed spitting into the emesis bag. There is no emesis in the bag. At this time patient told me that she felt horrible and that her headache is back. I asked her she could speak to the dec solar resource assessor, she told me that she can because she can not stop vomiting. Therefore at this time, we tried a dose of IV Compazine. Given her ongoing headache despite treatment and nausea with dry heaving I did opt to do a head CT. This was unremarkable. IV Compazine did help her symptoms she stopped dry heaving and spinning into the emesis bag. She was able to talk to the dec solar resource assessor at this time. Per the solar resource assessor patient is not suicidal again mentions her 2 children to the dec solar resource assessor as well. Patient appears to be well connected she has a psychiatrist and has a chemical dependency evaluation next week. She also has another therapy appointment scheduled for this coming Friday. We assessed was able talk to the patient's mother as well our who will also keep an eye on her. Vital Signs Vital signs: Initial Vital Signs Temperature 97.5 F L 06/03/23 13:42 Temperature Source Temporal Artery Scan 06/03/23 13:42 Pulse Rate 93 06/03/23 13:42 Pulse Rhythm Regular 06/03/23 13:42 Pulse Strength 3+ Normal 06/03/23 13:42 Respiratory Rate 20 06/03/23 13:42 Blood Pressure 114/70 06/03/23 13:42 Blood Pressure Mean 84 06/03/23 13:42 Blood Pressure Position Sitting 06/03/23 13:42 Pulse Oximetry 98 06/03/23 13:42 Oxygen Delivery Method Room Air 06/03/23 13:42 Vital Signs Temperature 97.5 F L 06/03/23 13:42 Pulse Rate 93 06/03/23 13:42 Respiratory Rate 20 06/03/23 13:42 Blood Pressure 114/70 06/03/23 13:42 Pulse Oximetry 98 06/03/23 13:42 Oxygen Delivery Method Room Air 06/03/23 13:42 Temperature 97.5 F L 06/03/23 13:42 Pulse Rate 103 H 06/03/23 17:00 Respiratory Rate 20 06/03/23 13:42 Blood Pressure 107/69 06/03/23 17:00 Pulse Oximetry 95 06/03/23 17:00 Oxygen Delivery Method Room Air 06/03/23 16:30 Medical Decision Making MDM Narrative Medical decision making narrative: 52-year-old female with migraine headaches, vomiting, grief reaction, depression, history of suicidal ideation. The headache is appears to have improved with treatment and patient did stop vomiting while she was here. As far as mental health see notes above. We discussed that she does feel safe at home and again has no thoughts of hurting herself or others at this time. If this changes, she is encouraged to come to the ER and she is in agreement with this. Medical Records Medical records reviewed: Yes I reviewed the patient's medical records Lab Data Lab results reviewed: Yes I reviewed the patient's lab results Labs: Lab Results 06/03/23 06/03/23 Range/Units 13:58 15:11 WBC 9.00 (4.50-11.00) K/uL RBC 4.51 (4.00-5.20) m/uL Hgb 14.2 (12.0-16.0) gm/dL Hct 43.2 (33.0-51.0) % MCV 96 (80-100) fL MCH 32 (26-34) pg MCHC 33 (32-36) gm/dL RDW Coeff of Thao 12.3 (11.5-15.5) % Plt Count 338 (140-440) K/uL Neut % (Auto) 79.3 H (42.0-72.0) % Lymph % (Auto) 14.8 L (20-44) % [place] % (Auto) 3.0 (0.0-11.0) % Eos % (Auto) 1.3 (0.0-7.0) % Baso % (Auto) 0.4 (0.0-3.0) % Neut # (Auto) 7.10 H (1.7-7.0) K/uL Lymph # (Auto) 1.30 (0.90-2.90) K/uL [place] # (Auto) 0.30 (0.00-0.90) K/UL Eos # (Auto) 0.12 (0.00-0.50) K/uL Baso # (Auto) 0.04 (0.00-0.30) K/uL Abs Immat Gran (auto) 0.11 (0.00-0.30) K/uL Imm/Tot Granulo (auto) 1.2 % Sodium 140 (135-149) mmol/L Potassium 3.5 L (3.6-5.1) mmol/L Chloride 106 (96-114) mmol/L Carbon Dioxide 27 (20-32) mmol/L Anion Gap 7 (7-15) mEq/L BUN 22 (7-30) mg/dL Creatinine 0.6 (0.5-1.5) mg/dL Estimated Creat Clear 90.73 Estimated GFR 108 ml/min Glucose 115 (60-115) mg/dL Calcium 9.2 (8.4-10.6) mg/dL Salicylates < 1.0 L (1.0-10) mg/dL Urine Opiates Screen Negative (Negative) Ur Oxycodone Screen Negative (Negative) Urine Methadone Screen Negative (Negative) Ur Propoxyphene Screen Negative (Negative) Acetaminophen < 10.0 L (10.0-30.0) ug/mL Ur Barbiturates Screen Negative (Negative) U Tricyclic Antidepress POSITIVE A (Negative) Ur Phencyclidine Scrn Negative (Negative) Ur Amphetamines Screen Negative (Negative) U Methamphetamines Scrn Negative (Negative) U Benzodiazepines Scrn Negative (Negative) Urine Cocaine Screen Negative (Negative) U Marijuana (THC) Screen Negative (Negative) Ur Drug Screen Comment See Note Ethyl Alcohol < 0.01 L (0.01-0.03) % Imaging Data CT scan - head: Attestation: I have reviewed the pertinent imaging results. Radiologist's impression: COMPARISON: CT head 08/31/2017. MRI brain 09/01/2017. TECHNIQUE: CT of the head without IV contrast. Coronal and sagittal reconstructions. FINDINGS: No intracranial hemorrhage, mass effect, or evidence of acute infarct. No midline shift. No abnormal extra-axial fluid collections. Normal caliber ventricular system. Orbits and extraocular muscles are symmetric. The paranasal sinuses and mastoid air cells are clear. No acute fracture identified. Soft tissues are unremarkable. IMPRESSION: No acute intracranial findings. Discharge Plan Discharge Clinical Impression: Major depressive disorder, Migraine Patient Disposition: Home, Self-Care Condition: Stable Additional Instructions: If you have any thoughts of hurting yourself or others please return to the ER. Stay well hydrated and get lots of sleep tonight. Speak to your primary care provider about an alternative medication to treat your headaches at home. Prescriptions: No Action sumatriptan succinate 100 mg tablet 100 mg PO Q2H PRN Patient Comments: TAKE 1 TABLET BY MOUTH TWICE DAILY NEEDED FOR MIGRAINE. GIVE AT A MINIUMUM OF 2 HOURS APART. MAX DOSE 200MG PER 24 HOURS hydroxyzine HCl 50 mg tablet 50 mg PO HS PRN Patient Comments: TAKE 1/2 TO 1 TABLET BY MOUTH AT BEDTIME NEEDED amitriptyline 50 mg tablet 50 mg PO HS fluoxetine 20 mg capsule 20 mg PO DAILY Follow Up/Referrals: Xenia Curz MD [Primary Care Provider] - Stand Alone Forms: [facility] Info Instructions
[2023-06-03 15:30] VITALS: BP 109/86; PULSE 94; O2SAT 100
[2023-06-03] MEDS: LORazepam 2 MG/ML inj 0.5 MG IVP (15:32)
[2023-06-03 15:38] LABS: Acetaminophen* < 10.0 ug/mL (10.0-30.0); Ethanol* < 0.01 % (0.01-0.03); Salicylate* < 1.0 mg/dL (1.0-10)
[2023-06-03 16:00] VITALS: BP 118/77; PULSE 98; O2SAT 97
[2023-06-03 16:30] VITALS: BP 113/69; PULSE 101; O2SAT 97
[2023-06-03 17:00] VITALS: BP 107/69; PULSE 103; O2SAT 95
--- NOTE | 2023-06-03 17:50 | ED.NURSE ---
[facility] unable to assess the pt, they stated that the pt was vomiting and unable to respond to the questions, pt was calm and not symptomatic before and when teletypewriter operator brought the DEC computer into the room
[2023-06-03 18:11] LABS: Amphetamine Screen Urine Negative (Negative); Barbiturate Screen Urine Negative (Negative); Benzodiazepines Screen Urine Negative (Negative); Cannabinoid Screen Urine Negative (Negative); Cocaine Screen Urine Negative (Negative); Methadone Screen Urine Negative (Negative); Methamphetamines Screen Urine Negative (Negative); Opiate Screen Urine Negative (Negative); Oxycodone Screen Urine Negative (Negative); Phencyclidine Screen Urine Negative (Negative); Tricyclic Antidepressant Urine POSITIVE (Negative)
--- NOTE | 2023-06-03 18:36 | CRLHL7_ITS ---
For Patients: As a result of the Cures Act, medical imaging exams and procedure reports are released immediately into your electronic medical record. You may view this report before your referring provider. If you have questions, please contact your health care provider. INDICATION: Vomiting. COMPARISON: CT head 08/31/2017. MRI brain 09/01/2017. TECHNIQUE: CT of the head without IV contrast. Coronal and sagittal reconstructions. FINDINGS: No intracranial hemorrhage, mass effect, or evidence of acute infarct. No midline shift. No abnormal extra-axial fluid collections. Normal caliber ventricular system. Orbits and extraocular muscles are symmetric. The paranasal sinuses and mastoid air cells are clear. No acute fracture identified. Soft tissues are unremarkable. IMPRESSION: No acute intracranial findings. Please note that all CT scans at this facility use dose modulation, iterative reconstruction, and/or weight-based dosing when appropriate to reduce radiation dose to as low as reasonably achievable. Dictated by Latoya Lobo MD @ 06/03/2023 8:01:14 PM (Electronically Signed)
[2023-06-03] MEDS: PROCHLORPERAZINE 5 MG/ML VIAL 10 MG IV (18:50)
--- NOTE | 2023-06-03 20:52 | ED.NURSE ---
Assumed care of patient at 2030. Discharge instructions reviewed with patient. She requested her mother be contacted to pick her up and bring her home d/t the medications the pt received in the ER. Mother, Aron, will be arriving to transport patient home. All belongings returned to patient upon discharge. No questions at this time.
== END 2023-06-03 20:50 | disposition home or self-care (01) ==
PROVIDERS: Emergency Provider Family Medicine; PCP Family Medicine
DX: G43.909 Migraine, unspecified, not intractable, without status migrainosus (principal); F32.9 Major depressive disorder, single episode, unspecified
CPT/HCPCS: 36415; 70450; 80048; 80143; 80179; 80306; 82077; 83605; 85025; 96374; 96375; 99284; 99285; J0780; J1100; J1200; J1885; J2060; J2405; J7030

== ENCOUNTER 2023-08-09 09:01 | Emergency (ER) | payer BC, SELFPAY ==
[2023-08-09 09:07] VITALS: BP 105/70; PULSE 62; RESP 18; TEMP 36.1; O2SAT 96; BMI 21.3
--- NOTE | 2023-08-09 09:28 | ED_ITS ---
HPI - General Adult General Chief complaint: Nausea/Vomiting Stated complaint: nausea, vomiting, fever Time Seen by Provider: 08/09/23 09:16 History of Present Illness HPI narrative: Patient is a 53 white female who is largely healthy other than history of migraines, she had a tooth pulled yesterday in her upper gum and has been taking amoxicillin, she felt sick at about 3 in the afternoon yesterday with some slight chills nausea vomiting. No chest pain, no shortness of breath, no h istory of lung or heart disease. No leg swelling or edema. No bleeding or clotting problems. Related Data Home Medications Medication Instructions Recorded Confirmed amitriptyline 50 mg tablet 50 mg PO HS 06/06/22 08/09/23 fluoxetine 20 mg capsule 20 mg PO DAILY 06/06/22 11/06/22 hydroxyzine HCl 50 mg tablet 50 mg PO HS PRN 06/06/22 11/06/22 sumatriptan succinate 100 mg tablet 100 mg PO Q2H PRN 06/06/22 11/06/22 amoxicillin 875 mg tablet 875 mg PO BID 08/09/23 08/09/23 Previous Rx's Medication Instructions Recorded cephalexin 500 mg capsule 500 mg PO BID #10 caps 08/09/23 Allergies Allergy/AdvReac Type Severity Reaction Status Date / Time No Known Allergies Allergy Unknown Verified 06/03/23 13:46 Review of Systems Status of ROS: Reports: 6 or more systems reviewed and unremarkable except as noted in History and below [facility] Medical History Tobacco dependence ?F17.200 - Nicotine dependence, unspecified, uncomplicated (ICD-10) History of suicidal ideation ?Z86.59 - Personal history of other mental and behavioral disorders (ICD-10) History of substance abuse ?F19.11 - Other psychoactive substance abuse, in remission (ICD-10) Migraines ?G43.909 - Migraine, unspecified, not intractable, without status migrainosus (ICD-10) Cold sore ?B00.1 - Herpesviral vesicular dermatitis (ICD-10) Major depressive disorder ?F32.9 - Major depressive disorder, single episode, unspecified (ICD-10) Surgical History History of laparoscopic-assisted vaginal hysterectomy ?Z90.710 - Acquired absence of both cervix and uterus (ICD-10) History of ?Z98.891 - History of uterine scar from previous surgery (ICD-10) Social History Smoking Status: Current every day smoker What tobacco products do you use: cigarettes Smoking packs per day: 0.2 Smoking cigarettes per day: 4.0 Do you use any of these nicotine containing products: E-Cigarettes Second hand tobacco smoke exposure: No How often do you have a drink containing alcohol: never How often do you have six or more drinks on one occasion: Never AUDIT-C Alcohol total score: 0 Non-prescribed substance use: former substance user Non-prescribed substance use details: meth Caffeine: Yes (soda, coffee) service: No Exam Narrative: Exam Narrative: Objective: Afebrile, O2 sat excellent HEENT is unremarkable mouth shows pulled tooth no evidence of infection around the tooth bed Neck is supple No facial asymmetry Chest is clear no rales or wheezing Heart rhythm without murmur Abdomen benign Extremities are no edema Neurologic nonfocal Good peripheral perfusion, skin warm and dry Const: Vital Signs, click to edit/add: Vital Signs - 24 hr 08/09/23 09:07 08/09/23 10:10 Temperature 96.9 F L Pulse Rate [Pulse Oximeter] 62 81 Respiratory Rate 18 20 Blood Pressure [Ri ght Upper Arm] 105/70 118/64 Pulse Oximetry 96 98 Oxygen Delivery Me thod Room Air Room Air Course Vital Signs Vital signs: Initial Vital Signs Temperature 96.9 F L 08/09/23 09:07 Temperature Source Temporal Artery Scan 08/09/23 09:07 Pulse Rate 62 08/09/23 09:07 Respiratory Rate 18 08/09/23 09:07 Blood Pressure 105/70 08/09/23 09:07 Blood Pressure Mean 81 08/09/23 09:07 Blood Pressure Position Supine 08/09/23 09:07 Pulse Oximetry 96 08/09/23 09:07 Oxygen Delivery Method Room Air 08/09/23 09:07 Vital Signs Temperature 96.9 F L 08/09/23 09:07 Pulse Rate 62 08/09/23 09:07 Respiratory Rate 18 08/09/23 09:07 Blood Pressure 105/70 08/09/23 09:07 Pulse Oximetry 96 08/09/23 09:07 Oxygen Delivery Method Room Air 08/09/23 09:07 Temperature 96.9 F L 08/09/23 09:07 Pulse Rate 81 08/09/23 10:10 Respiratory Rate 20 08/09/23 10:10 Blood Pressure 118/64 08/09/23 10:10 Pulse Oximetry 98 08/09/23 10:10 Oxygen Delivery Method Room Air 08/09/23 10:10 Medical Decision Making MDM Narrative Medical decision making narrative: 53-year-old female with the onset of vomiting yesterday, I think could be appropriate to check her viral studies, check labs, IV fluid, IV Toradol and Zofran. May be reasonable to switch to something else other than amoxicillin if that could be upsetting her stomach, if the viral studies are negative. Lab Data Labs: Lab Results 08/09/23 Range/Units 10:00 WBC 6.46 (4.50-11.00) K/uL RBC 3.77 L (4.00-5.20) m/uL Hgb 12.3 (12.0-16.0) gm/dL Hct 37.4 (33.0-51.0) % MCV 99 (80-100) fL MCH 33 (26-34) pg MCHC 33 (32-36) gm/dL RDW Coeff of Thao 12.6 (11.5-15.5) % Plt Count 280 (140-440) K/uL Neut % (Auto) 83.8 H (42.0-72.0) % Lymph % (Auto) 12.1 L (20-44) % [place] % (Auto) 3.7 (0.0-11.0) % Eos % (Auto) 0.0 (0.0-7.0) % Baso % (Auto) 0.2 (0.0-3.0) % Neut # (Auto) 5.40 (1.7-7.0) K/uL Lymph # (Auto) 0.80 L (0.90-2.90) K/uL [place] # (Auto) 0.20 (0.00-0.90) K/UL Eos # (Auto) 0.00 (0.00-0.50) K/uL Baso # (Auto) 0.01 (0.00-0.30) K/uL Abs Immat Gran (auto) 0.01 (0.00-0.30) K/uL Imm/Tot Granulo (auto) 0.2 % Discharge Plan Discharge Clinical Impression: Vomiting Patient Disposition: Home w/ Parent or Adult Condition: Improved Additional Instructions: Light activity, light diet, may advance her diet as tolerated. Would recommend also that you to stop the amoxicillin and switch to Keflex instead as sometimes antibiotics can upset your stomach. Recheck with your dentist as planned, recheck with primary care as needed. Activity Level: Light activity Discharge Diet: Full Liquid Diet Detail: Advance diet as tolerated Prescriptions: New cephalexin 500 mg capsule 500 mg PO BID Qty: 10 0RF No Action sumatriptan succinate 100 mg tablet 100 mg PO Q2H PRN Patient Comments: TAKE 1 TABLET BY MOUTH TWICE DAILY NEEDED FOR MIGRAINE. GIVE AT A MINIUMUM OF 2 HOURS APART. MAX DOSE 200MG PER 24 HOURS hydroxyzine HCl 50 mg tablet 50 mg PO HS PRN Patient Comments: TAKE 1/2 TO 1 TABLET BY MOUTH AT BEDTIME NEEDED amitriptyline 50 mg tablet 50 mg PO HS fluoxetine 20 mg capsule 20 mg PO DAILY amoxicillin 875 mg tablet 875 mg PO BID Follow Up/Referrals: Xenia Cruz MD [Primary Care Provider] - Stand Alone Forms: [employer] Info Instructions
[2023-08-09] MEDS: 0.9 % SODIUM CHLORIDE 1000 ml 1,000 ML 6000 ML IV (10:02)
[2023-08-09] MEDS: ONDANSETRON 2 MG/ML inj 4 MG IVP (10:02)
[2023-08-09] MEDS: KETOROLAC 15 MG/ML inj IVP (10:04)
[2023-08-09 10:06] LABS: Basophils Absolute Auto 0.01 K/uL (0.00-0.30); Basophils Percent Auto 0.2 % (0.0-3.0); Hematocrit 37.4 % (33.0-51.0); Hemoglobin* 12.3 gm/dL (12.0-16.0); Immature Granulocytes Abs Auto 0.01 K/uL (0.00-0.30); Immature Granulocytes Pct Auto 0.2 %; Lymphocytes Percent Auto 12.1 % (20-44); Mean Corpuscular HGB Conc 33 gm/dL (32-36); Mean Corpuscular Hemoglobin 33 pg (26-34); Mean Corpuscular Volume 99 fL (80-100); Monocytes Percent Auto 3.7 % (0.0-11.0); Neutrophils Percent Auto 83.8 % (42.0-72.0); Platelet Count* 280 K/uL (140-440); RDW Coefficient of Variation % 12.6 % (11.5-15.5); Red Blood Count 3.77 m/uL (4.00-5.20); White Blood Count* 6.46 K/uL (4.50-11.00)
[2023-08-09 10:10] VITALS: BP 118/64; PULSE 81; RESP 20; O2SAT 98
[2023-08-09 10:10] LABS: Slide Review Reflex No
[2023-08-09 10:19] LABS: Chloride* 105 mmol/L (96-114)
[2023-08-09 10:20] LABS: Potassium* 4.2 mmol/L (3.6-5.1); Sodium* 138 mmol/L (135-149)
[2023-08-09 10:21] LABS: PCR FLU A Negative PCR FLU A (Negative); PCR FLU B Negative PCR FLU B (Negative); PCR RSV Negative PCR RSV (Negative)
[2023-08-09 10:22] LABS: Amylase* 73 U/L (18-89)
[2023-08-09 10:23] LABS: Alanine Aminotransferase* 27 U/L (4-35); Alkaline Phosphatase* 69 U/L (40-150); Anion Gap 9 mEq/L (7-15); Aspartate Amino Transferase* 39 U/L (12-35); Bilirubin Total* 0.6 mg/dL (0.1-1.5); Blood Urea Nitrogen* 26 mg/dL (7-30); Calcium* 8.8 mg/dL (8.4-10.6); Carbon Dioxide* 24 mmol/L (20-32); Creatinine* 0.5 mg/dL (0.5-1.5); Est. Creatinine Clearance* 107.64; Estimated Glomerular Filt Rate 112 ml/min; Glucose* 100 mg/dL (60-115); Total Protein* 6.9 g/dL (6.0-8.3)
[2023-08-09 10:25] LABS: SARS PCR* Negative SARS-CoV-2 (Negative)
[2023-08-09 10:29] LABS: C Reactive Protein* < 0.5 mg/dL (0.5-1.0)
== END 2023-08-09 10:57 | disposition home or self-care (01) ==
PROVIDERS: Emergency Provider Family Medicine; PCP Family Medicine
DX: R11.10 Vomiting, unspecified (principal)
CPT/HCPCS: 36415; 80048; 80076; 82150; 85025; 86140; 87631; 96374; 96375; 99284; J1885; J2405; J7030

== ENCOUNTER 2023-10-16 14:26 | Emergency (ER) | payer BC, SELFPAY ==
[2023-10-16 14:44] VITALS: BP 144/99; PULSE 95; RESP 14; TEMP 36.4; O2SAT 99
[2023-10-16] MEDS: 0.9 % SODIUM CHLORIDE 1000 ml 1,000 ML IV (16:15)
[2023-10-16] MEDS: METOCLOPRAMIDE HCL 5 MG/ML INJ 10 MG IVP (16:16)
[2023-10-16] MEDS: diphenhydrAMINE 50 MG/ML inj 12.5 MG IVP (16:17)
[2023-10-16] MEDS: KETOROLAC 15 MG/ML inj IVP (16:19)
[2023-10-16 17:15] VITALS: PULSE 90; O2SAT 98
[2023-10-16 17:31] VITALS: BP 105/69; PULSE 84; RESP 18; O2SAT 98
--- NOTE | 2023-10-16 21:06 | ED_ITS ---
HPI - General Adult General Chief complaint: Headache/Migraine Stated complaint: Migraine Time Seen by Provider: 10/16/23 14:52 History of Present Illness HPI narrative: this is a pleasant 53-year-old female with a past medical history that includes migraine headaches, depression, tobacco use, previous hysterectomy, distant history of . She presents to the ER today for headache. She has a known history of migraines and has had to come to the ER for them in the past. Records show that she was here in December and was treated with a migraine cocktail of Toradol, Benadryl, Reglan with good improvement in her headache. Yesterday she developed a mild frontal headache that is worse this morning and overnight. She tried to go to with the pharmacy yesterday to get her typical Imitrex prescription filled. However due to shortage the medication was not available at the pharmacy so she was not able to take it. She was taking multiple doses of ibuprofen to treat her headache overnight but despite that it got worse today. Is now associated with photophobia and phonophobia and nausea. No other neurologic symptoms such as focal numbness or weakness in her arms or legs. No confusion. No blurry vision or diplopia. No visual scotomata. Typically her migraines are right frontal but this headache is more bifrontal. It is otherwise similar in onset, character, intensity, and associated symptoms to her other migraine headaches. No fever. No neck stiffness. No nasal congestion or cough or URI symptoms. No sore throat. No recent head injury. No known carbon monoxide exposure. Related Data Home Medications Medication Instructions Recorded Confirmed amitriptyline 50 mg tablet 50 mg PO HS 06/06/22 10/16/23 sumatriptan succinate 100 mg tablet 100 mg PO Q2H PRN 06/06/22 10/16/23 Allergies Allergy/AdvReac Type Severity Reaction Status Date / Time amoxicillin AdvReac Gastrointestinal Verified 10/16/23 14:48 Upset [facility] Medical History Tobacco dependence ?F17.200 - Nicotine dependence, unspecified, uncomplicated (ICD-10) History of suicidal ideation ?Z86.59 - Personal history of other mental and behavioral disorders (ICD-10) History of substance abuse ?F19.11 - Other psychoactive substance abuse, in remission (ICD-10) Migraines ?G43.909 - Migraine, unspecified, not intractable, without status migrainosus (ICD-10) Cold sore ?B00.1 - Herpesviral vesicular dermatitis (ICD-10) Major depressive disorder ?F32.9 - Major depressive disorder, single episode, unspecified (ICD-10) Surgical History History of laparoscopic-assisted vaginal hysterectomy ?Z90.710 - Acquired absence of both cervix and uterus (ICD-10) History of ?Z98.891 - History of uterine scar from previous surgery (ICD-10) Social History Smoking Status: Current every day smoker What tobacco products do you use: cigarettes Smoking packs per day: 0.2 Smoking cigarettes per day: 4.0 Do you use any of these nicotine containing products: E-Cigarettes and Vaping Products Second hand tobacco smoke exposure: No How often do you have a drink containing alcohol: never How often do you have six or more drinks on one occasion: Never AUDIT-C Alcohol total score: 0 Non-prescribed substance use: former substance user Non-prescribed substance use details: meth Caffeine: Yes (soda, coffee) service: No Exam Narrative: Exam Narrative: Constitutional: Appears well-developed and well-nourished. Alert. Conversant. Non toxic. HENT: Head: Atraumatic. No depressed skull fracture, Raccoon Eyes, Feliciano's sign, or hemotympanum. Face normal. TMs normal Nose: Nose normal. Mouth/Throat: Oral mucosa is clear and moist. no trismus. Pharynx normal. Tonsils symmetric. No tonsillar enlargement, erythema, or exudate. Eyes: Conjunctivae normal. EOM normal. Pupils equal, round, and reactive to light. No scleral icterus. Neck: Normal range of motion. Neck supple. No tracheal deviation present. Cardiovascular: Normal rate, regular rhythm. No gallop. No friction rub. No murmur heard. Symmetric radial artery pulses Pulmonary/Chest: Effort normal. No stridor. No respiratory distress. No wheezes. No rales. No rhonchi . No tenderness. Abdominal: Soft. Bowel sounds normal. No distension. No mass. No tenderness. No rebound. No guarding. Musculoskeletal: RUE: Normal range of motion. No tenderness. No deformity LUE: Normal range of motion. No tenderness. No deformity RLE: Normal range of motion. No edema. No tenderness. No deformity LLE: Normal range of motion. No edema. No tenderness. No deformity Lymph: No cervical adenopathy. Neurological: Mental status normal. Attention normal. Alert and oriented x3. GCS 15. Memory normal. Speech fluent. Cognition normal. Cranial Nerves intact II-XII except I did not formally test gag or visual a cuity. EOMI. Palate elevates symmetrically and tongue protrudes in the midline. Strength: 5/5 trapezius on the right and left 5/5 deltoid on the right and left 5/5 biceps on the right and left 5/5 triceps on the right and left 5/5 wet end tester on the right and left 5/5 thumb opposition on the right and le ft 5/5 finger abduction on the right and le ft 5/5 hip flexors (L3) on the right and le ft 5/5 quadriceps (L4) on the right and lef t 5/5 tibialis anterior on the right and l eft 5/5 EHL (L5) on the right and left 5/5 gastrocnemius (S1) on the right and left 5/5 hamstring on the right and left Sensation intact to light touch in both upper extremities (C4-T1) Sensation intact to light touch in Both lower extremities (L4-S1). Finger to nose and coordination normal. Gait normal. Skin: Skin is warm and dry. No rash noted. No pallor. Normal capillary refill. Psychiatric: Normal mood. Normal affect. Const: Vital Signs, click to edit/add: Vital Signs - 24 hr 10/16/23 14:44 10/16/23 17:15 10/16/23 17:31 Temperature 97.5 F L Pulse Rate [Right Pulse Oximeter] 95 90 84 Respiratory Rate 14 18 Blood Pressure [Ri ght Upper Arm] 144/99 H 105/69 Pulse Oximetry 99 98 98 Oxygen Delivery Me thod Room Air Room Air Room Air Course Course ED Course: Recheck-somewhat improved after Toradol, Reglan, Benadryl. Meds administered 20 minutes ago. Reevaluation(s) Reevaluation #1: Recheck -patient put on her call light. She said her headache was down to a 1 or 2/10. She is feeling better and wants to discharge home. Mildly drowsy after Benadryl. She does have a ride home. Vital Signs Vital signs: Initial Vital Signs Temperature 97.5 F L 10/16/23 14:44 Temperature Source Temporal Artery Scan 10/16/23 14:44 Pulse Rate 95 10/16/23 14:44 Pulse Rhythm Regular 10/16/23 14:44 Pulse Strength 3+ Normal 10/16/23 14:44 Respiratory Rate 14 10/16/23 14:44 Blood Pressure 144/99 H 10/16/23 14:44 Blood Pressure Mean 114 H 10/16/23 14:44 Blood Pressure Position Sitting 10/16/23 14:44 Pulse Oximetry 99 10/16/23 14:44 Oxygen Delivery Method Room Air 10/16/23 14:44 Vital Signs Temperature 97.5 F L 10/16/23 14:44 Pulse Rate 95 10/16/23 14:44 Respiratory Rate 14 10/16/23 14:44 Blood Pressure 144/99 H 10/16/23 14:44 Pulse Oximetry 99 10/16/23 14:44 Oxygen Delivery Method Room Air 10/16/23 14:44 Temperature 97.5 F L 10/16/23 14:44 Pulse Rate 84 10/16/23 17:31 Respiratory Rate 18 10/16/23 17:31 Blood Pressure 105/69 10/16/23 17:31 Pulse Oximetry 98 10/16/23 17:31 Oxygen Delivery Method Room Air 10/16/23 17:31 Medications Administered Medications: Discontinued Medications Generic Name Dose Route Start Last Admin Trade Name Freq PRN Reason Stop Dose Admin Diphenhydramine HCl 12.5 mg 10/16/23 15:33 10/16/23 16:17 Diphenhydramine 50 Mg/Ml Inj IVP 10/16/23 15:34 12.5 mg ONCE ONE Administration Sodium Chloride 1,000 mls @ 1,000 mls/hr 10/16/23 15:30 10/16/23 17:16 0.9 % Sodium Chloride 1000 Ml IV 10/16/23 16:29 Infused .Q1H JAELYN Infusion Ketorolac Tromethamine 15 mg 10/16/23 15:28 10/16/23 16:19 Ketorolac 15 Mg/Ml Inj IVP 10/16/23 15:29 15 mg ONCE ONE Administration Metoclopramide HCl 10 mg 10/16/23 15:28 10/16/23 16:16 Metoclopramide Hcl 5 Mg/Ml Inj IVP 10/16/23 15:29 10 mg ONCE ONE Administration Medical Decision Making MDM Narrative Medical decision making narrative: Ths patient presents with a headache. A broad differential diagnosis was considered including tension, migraine, analgesic rebound, occipital neuralgia, etc. Other less common but serious causes considered included meningitis, encephalitis, subarachnoid bleed, stroke, tumor, etc. The patient has no signs of serious headache etiologies at this point. No advanced imaging is indicated, nor is CT/lumbar puncture for SAH. Headache is similar in slow onset, associated symptoms, character and intensity to previous migraines. She has improved after migraine cocktail and is now feeling better. Patients questions were answered and they feel improved after above interventions in ED. Sup portive outpatient management is therefore indicated. Headache precautions given for home. Discharge Plan Discharge Clinical Impression: Headache Patient Disposition: Home, Self-Care Condition: Stable Instructions: Acute Headache (DC) Additional Instructions: as we discussed, please return to the ER right away if you have recurrent headache, fever, stiff neck, confusion, vomiting, or any other concerning symptoms. Prescriptions: No Action sumatriptan succinate 100 mg tablet 100 mg PO Q2H PRN Patient Comments: TAKE 1 TABLET BY MOUTH TWICE DAILY NEEDED FOR MIGRAINE. GIVE AT A MINIUMUM OF 2 HOURS APART. MAX DOSE 200MG PER 24 HOURS amitriptyline 50 mg tablet 50 mg PO HS Follow Up/Referrals: Xenia Cruz MD [Primary Care Provider] - Stand Alone Forms: [employer] Info Instructions
== END 2023-10-16 17:33 | disposition home or self-care (01) ==
PROVIDERS: Emergency Provider Emergency Medicine; PCP Family Medicine
DX: R51.9 Headache, unspecified (principal)
CPT/HCPCS: 96374; 96375; 99283; 99284; J1200; J1885; J2765; J7030

== ENCOUNTER 2023-10-17 08:56 | Emergency (ER) | payer BC, SELFPAY ==
[2023-10-17 09:06] VITALS: BP 135/94; PULSE 102; RESP 18; TEMP 36.3; O2SAT 98; BMI 21.3
--- NOTE | 2023-10-17 09:15 | ED_ITS ---
HPI - Headache General Date Seen: 10/17/23 Chief Complaint: Headache/Migraine Stated Complaint: migraine Time Seen by Provider: 10/17/23 09:09 Source: patient Mode of arrival: ambulatory Limitations: no limitations History of Present Illness HPI Narrative: Patient is a 53-year-old female with a history of migraines presenting to the emergency department for a headache. She was here yesterday for the same symptoms and she got them a great cocktail symptoms resolved. She states her migraine today feels the same in intensity. She says she has several migraines like this before. Does state this is the 1st time it is ever rebounded like this but states that she thinks it rebounded because she usually takes her Imitrex as soon as symptoms start but unable to get it right now. Her pharmacy will not have it for the next few days. Do this she had no migraine abortive meds at home. She states she always gets a migraine cocktail and always helps. Denies numbness, weakness, chest pain, shortness of breath. No other concerns at this time but she is tearful from the pain. Denies any injuries. Related Data Home Medications Medication Instructions Recorded Confirmed amitriptyline 50 mg tablet 50 mg PO HS 06/06/22 10/16/23 sumatriptan succinate 100 mg tablet 100 mg PO Q2H PRN 06/06/22 10/16/23 Previous Rx's Medication Instructions Recorded sumatriptan 20 mg/actuation nasal 20 mg intranasal Q2H PRN migraine 10/17/23 spray (Imitrex) headache #6 ea Allergies Allergy/AdvReac Type Severity Reaction Status Date / Time amoxicillin AdvReac Gastrointestinal Verified 10/16/23 14:48 Upset Review of Systems Status of ROS: Reports: 10 or more systems reviewed and unremarkable except as noted in History and below [facility] Medical History Tobacco dependence ?F17.200 - Nicotine dependence, unspecified, uncomplicated (ICD-10) History of suicidal ideation ?Z86.59 - Personal history of other mental and behavioral disorders (ICD-10) History of substance abuse ?F19.11 - Other psychoactive substance abuse, in remission (ICD-10) Migraines ?G43.909 - Migraine, unspecified, not intractable, without status migrainosus (ICD-10) Cold sore ?B00.1 - Herpesviral vesicular dermatitis (ICD-10) Major depressive disorder ?F32.9 - Major depressive disorder, single episode, unspecified (ICD-10) Surgical History History of laparoscopic-assisted vaginal hysterectomy ?Z90.710 - Acquired absence of both cervix and uterus (ICD-10) History of ?Z98.891 - History of uterine scar from previous surgery (ICD-10) Social History Smoking Status: Current every day smoker What tobacco products do you use: cigarettes Smoking packs per day: 0.2 Smoking cigarettes per day: 4.0 Do you use any of these nicotine containing products: E-Cigarettes and Vaping Products Second hand tobacco smoke exposure: No How often do you have a drink containing alcohol: never How often do you have six or more drinks on one occasion: Never AUDIT-C Alcohol total score: 0 Non-prescribed substance use: former substance user Non-prescribed substance use details: meth Caffeine: Yes (soda, coffee) service: No Exam Narrative: Exam Narrative: Const: Well-nourished, Well-developed, in moderate distress Eyes: PERRL, no conjunctival injection, and symmetrical lids HENT: Atraumatic external nose and ears. Moist mucous membranes. Neck: Symmetric, trachea midline, No thyromegaly. CVS: RRR, No murmurs or gallops. Peripheral pulses 2+ and equal in all extremities RESP: Unlabored respiratory effort. Clear to auscultation bilaterally. GI: Nontender/Nondistended, No rebound or guarding. MSK:Extremities w/o deformity, Normal Active ROM Skin: Warm, Dry. No rashes or lesions. Neuro: Normal Muscle tone, No focal neurological deficits. Psych: Awake, Alert, & Oriented x3. Appropriate mood and affect. Const: Vital Signs, click to edit/add: Vital Signs - 24 hr 10/17/23 09:06 10/17/23 09:30 10/17/23 10:04 Temperature 97.4 F L Pulse Rate [Right Pulse Oximeter] 102 H 91 73 Respiratory Rate 18 Blood Pressure [Ri ght Upper Arm] 135/94 H 128/87 127/90 H Pulse Oximetry 98 100 98 Oxygen Delivery Me thod Room Air Room Air Room Air Course Vital Signs Vital signs: Initial Vital Signs Temperature 97.4 F L 10/17/23 09:06 Temperature Source Temporal Artery Scan 10/17/23 09:06 Pulse Rate 102 H 10/17/23 09:06 Respiratory Rate 18 10/17/23 09:06 Blood Pressure 135/94 H 10/17/23 09:06 Blood Pressure Mean 107 H 10/17/23 09:06 Blood Pressure Position Sitting 10/17/23 09:06 Pulse Oximetry 98 10/17/23 09:06 Oxygen Delivery Method Room Air 10/17/23 09:06 Vital Signs Temperature 97.4 F L 10/17/23 09:06 Pulse Rate 102 H 10/17/23 09:06 Respiratory Rate 18 10/17/23 09:06 Blood Pressure 135/94 H 10/17/23 09:06 Pulse Oximetry 98 10/17/23 09:06 Oxygen Delivery Method Room Air 10/17/23 09:06 Temperature 97.4 F L 10/17/23 09:06 Pulse Rate 73 10/17/23 10:04 Respiratory Rate 18 10/17/23 09:06 Blood Pressure 127/90 H 10/17/23 10:04 Pulse Oximetry 98 10/17/23 10:04 Oxygen Delivery Method Room Air 10/17/23 10:04 Medications Administered Medications: Discontinued Medications Generic Name Dose Route Start Last Admin Trade Name Freq PRN Reason Stop Dose Admin Diphenhydramine HCl 25 mg 10/17/23 09:11 10/17/23 09:33 Diphenhydramine 50 Mg/Ml Inj IVP 10/17/23 09:12 25 mg ONCE ONE Administration Lactated Ringer's 1,000 mls @ 1,000 mls/hr 10/17/23 09:11 10/17/23 09:32 Lactated Ringers 1000 Ml IV 10/17/23 10:10 1,000 mls/hr .Q1H ONE Administration Ketorolac Tromethamine 15 mg 10/17/23 09:11 10/17/23 09:33 Ketorolac 15 Mg/Ml Inj IVP 10/17/23 09:12 15 mg ONCE ONE Administration Metoclopramide HCl 10 mg 10/17/23 09:11 10/17/23 09:33 Metoclopramide Hcl 5 Mg/Ml Inj IVP 10/17/23 09:12 10 mg ONCE ONE Administration MDM - Headache MDM Narrative Medical decision making narrative: Patient is a 53-year-old female presented for a migraine. Had the same symptoms last night. States is the 1st time she has had her rebound headache but does admit she does not have her Imitrex and cannot get it until Friday. She states usually when she starts feeling a migraine coming on she can use the Imitrex to stop it. She believes that is why she had the repeat migraine today. States this is just like her previous migraines and I do not believe imaging, lumbar puncture are necessary at this time. To be given a migraine cocktail. After migraine cocktail she states he is feeling much better and feels safe to go home. I will give her prescriptions for Imitrex sent to a new pharmacy. Will also provide a written prescription in case that new pharmacy does not have the Imitrex either Discharge Plan Discharge Clinical Impression: Migraine Qualifiers: Migraine type: other Status migrainosus presence: without status migrainosus Intractability: not intractable Qualified Code(s): G43.809 - Other migraine, not intractable, without status migrainosus Patient Disposition: Home, Self-Care Condition: Improved Instructions: Migraine Headache (ED) Additional Instructions: Your prescription was sent to the [facility] in [facility] as you requested. Also provided a written prescription for it in case they do not have it either. Return to emergency department for new or worsening symptoms Prescriptions: New sumatriptan [Imitrex] 20 mg/actuation spray,non-aerosol 20 mg intranasal Q2H PRN (Reason: migraine headache) Qty: 6 1RF Rx Instructions: administer into one nostril as a single dose; if 2nd dose needed,administer into other nostril after at least 2 hrs, NTE 2 doses (40 mg) per episode No Action sumatriptan succinate 100 mg tablet 100 mg PO Q2H PRN Patient Comments: TAKE 1 TABLET BY MOUTH TWICE DAILY NEEDED FOR MIGRAINE. GIVE AT A MINIUMUM OF 2 HOURS APART. MAX DOSE 200MG PER 24 HOURS amitriptyline 50 mg tablet 50 mg PO HS Follow Up/Referrals: Xenia Cruz MD [Primary Care Provider] - Stand Alone Forms: [employer] Info Instructions
[2023-10-17 09:30] VITALS: BP 128/87; PULSE 91; O2SAT 100
[2023-10-17] MEDS: LACTATED RINGERS 1000 ML 1,000 ML IV (09:32)
[2023-10-17] MEDS: diphenhydrAMINE 50 MG/ML inj 25 MG IVP (09:33)
[2023-10-17] MEDS: KETOROLAC 15 MG/ML inj IVP (09:33)
[2023-10-17] MEDS: METOCLOPRAMIDE HCL 5 MG/ML INJ 10 MG IVP (09:33)
[2023-10-17 10:04] VITALS: BP 127/90; PULSE 73; O2SAT 98
== END 2023-10-17 10:38 | disposition home or self-care (01) ==
PROVIDERS: Emergency Provider Student in an Organized Health Care Education/Training Program; PCP Family Medicine
DX: G43.909 Migraine, unspecified, not intractable, without status migrainosus (principal)
CPT/HCPCS: 96374; 96375; 99283; 99284; J1200; J1885; J2765; J7120

== ENCOUNTER 2023-11-24 02:34 | Emergency (ER) | payer BC, SELFPAY ==
[2023-11-24 02:41] VITALS: BP 139/87; PULSE 93; RESP 16; TEMP 36.4; O2SAT 99; BMI 21.3
--- NOTE | 2023-11-24 02:53 | ED.HA ---
HPI - Headache General Date Seen: 11/24/23 Chief Complaint: Headache/Migraine Stated Complaint: Migraine Time Seen by Provider: 11/24/23 03:04 Source: patient and RN notes reviewed Mode of arrival: ambulatory Limitations: no limitations History of Present Illness HPI Narrative: Patient is a 53-year-old female who presents here with a migraine headache, she has had more migraine headaches recently. She thinks this is due to stress, as she just recently moved, she has none any fevers, she felt a little bit chilled tonight, denies any neck stiffness and there is no thunderclap presentation with this, she took her ibuprofen , she only gets 6 sumatriptan per month, and just run out of them. Denies any focal numbness weakness in her arms or legs, she has had no blurry vision or diplopia, this headache seems to be more left-sided frontal, and she usually gets more on the right side but she has had had this before with a similar presentation. No history of carbon monoxide exposure. Denies any fevers associated with this, no recent medical interventions such as IVs, procedures. She is to see a neurologist, who gave her Botox injections that helped a fair bit, but she actually improved her headaches per MD elicited complaint: headache Pertinent past history: migraines Onset (ago): hour(s) Onset description: gradually and while at rest Location: left and frontal Severity: severe Quality & Timing: aching, throbbing, pressure and similar to previous headaches Exacerbating factors: exertion, movement of head/neck, light and noise Relieving factors: rest, prescription medication and dark room Associated symptoms: nausea, photophobia and sensitivity to sound Treatments prior to arrival: ibuprofen Related Data Home Medications Medication Instructions Recorded Confirmed amitriptyline 50 mg tablet 50 mg PO HS 06/06/22 11/24/23 sumatriptan succinate 100 mg tablet 100 mg PO Q2H PRN 06/06/22 11/24/23 Previous Rx's Medication Instructions Recorded sumatriptan 20 mg/actuation nasal 20 mg intranasal Q2H PRN migraine 10/17/23 spray (Imitrex) headache #6 ea Allergies Allergy/AdvReac Type Severity Reaction Status Date / Time amoxicillin AdvReac Gastrointestinal Verified 11/24/23 02:41 Upset Review of Systems Status of ROS: Reports: 10 or more systems reviewed and unremarkable except as noted in History and below PFSH PFSH Medical History Tobacco dependence ?F17.200 - Nicotine dependence, unspecified, uncomplicated (ICD-10) History of suicidal ideation ?Z86.59 - Personal history of other mental and behavioral disorders (ICD-10) History of substance abuse ?F19.11 - Other psychoactive substance abuse, in remission (ICD-10) Migraines ?G43.909 - Migraine, unspecified, not intractable, without status migrainosus (ICD-10) Cold sore ?B00.1 - Herpesviral vesicular dermatitis (ICD-10) Major depressive disorder ?F32.9 - Major depressive disorder, single episode, unspecified (ICD-10) Surgical History History of laparoscopic-assisted vaginal hysterectomy ?Z90.710 - Acquired absence of both cervix and uterus (ICD-10) History of ?Z98.891 - History of uterine scar from previous surgery (ICD-10) Social History Smoking Status: Current every day smoker What tobacco products do you use: cigarettes Smoking packs per day: 0.2 Smoking cigarettes per day: 4.0 Do you use any of these nicotine containing products: E-Cigarettes and Vaping Products Second hand tobacco smoke exposure: No How often do you have a drink containing alcohol: never How often do you have six or more drinks on one occasion: Never AUDIT-C Alcohol total score: 0 Non-prescribed substance use: former substance user Non-prescribed substance use details: meth Caffeine: Yes (soda, coffee) service: No Exam Narrative: Exam Narrative: I see her in room 3, in a dark room she is alert conversant oriented to 3 spheres,, photophobic, pupils are equal round reactive to light she tracks normally with absence numbness nystagmus, her TMs are normal oropharynx is normal. Cranial nerves 3-12 are normal, her neck is supple absence of meningismus is noted. Chest is good air entry bilaterally with no wheezing crackles noted heart sounds are normal, no evidence of clicks murmurs or gallops. Abdomen is soft and scaphoid there is no guarding, no organomegaly, no tenderness to palpation, neurologically she moves all extremities independently and well, appears to be right-handed, fingers nose testing is normal with the right hand, assembler finger buffs strengths are normal reflexes normal in her upper lower extremities, power is normal and symmetrical both distally and proximally. Skin reveals no petechiae or rashes, or bruising. Const: Vital Signs, click to edit/add: Vital Signs - 24 hr 11/24/23 02:41 Temperature 97.6 F Pulse Rate [Pulse Oximeter] 93 Respiratory Rate 16 Blood Pressure [Ri ght Upper Arm] 139/87 Pulse Oximetry 99 Oxygen Delivery Me thod Room Air Documenting provider has reviewed patient's vital signs: yes Course Course ED Course: Patient was improved after medications and fluids. Requesting to go home, when she gets a operator and truck driver we can discharge her home. Vital Signs Vital signs: Initial Vital Signs Temperature 97.6 F 11/24/23 02:41 Temperature Source Temporal Artery Scan 11/24/23 02:41 Pulse Rate 93 11/24/23 02:41 Pulse Strength 3+ Normal 11/24/23 02:41 Respiratory Rate 16 11/24/23 02:41 Blood Pressure 139/87 11/24/23 02:41 Blood Pressure Mean 104 11/24/23 02:41 Pulse Oximetry 99 11/24/23 02:41 Oxygen Delivery Method Room Air 11/24/23 02:41 Vital Signs Temperature 97.6 F 11/24/23 02:41 Pulse Rate 93 11/24/23 02:41 Respiratory Rate 16 11/24/23 02:41 Blood Pressure 139/87 11/24/23 02:41 Pulse Oximetry 99 11/24/23 02:41 Oxygen Delivery Method Room Air 11/24/23 02:41 Temperature 97.6 F 11/24/23 02:41 Pulse Rate 93 11/24/23 02:41 Respiratory Rate 16 11/24/23 02:41 Blood Pressure 139/87 11/24/23 02:41 Pulse Oximetry 99 11/24/23 02:41 Oxygen Delivery Method Room Air 11/24/23 02:41 Medications Administered Medications: Discontinued Medications Generic Name Dose Route Start Last Admin Trade Name Freq PRN Reason Stop Dose Admin Sodium Chloride 1,000 mls @ 1,000 mls/hr 11/24/23 03:00 11/24/23 04:12 0.9 % Sodium Chloride 1000 Ml IV 11/24/23 03:59 Infused .Q1H JAELYN Infusion Diphenhydramine HCl 50 mg/ 101 mls @ 404 mls/hr 11/24/23 02:51 11/24/23 03:29 Sodium Chloride IVPB 11/24/23 02:52 Infused ONCE ONE Infusion Metoclopramide HCl 10 mg/ 102 mls @ 306 mls/hr 11/24/23 02:51 11/24/23 03:29 Sodium Chloride IVPB 11/24/23 02:52 Infused ONCE ONE Infusion Dexamethasone 10 mg/ Sodium 101 mls @ 404 mls/hr 11/24/23 02:51 11/24/23 03:29 Chloride IVPB 11/24/23 02:52 Infused ONCE ONE Infusion Sodium Chloride 1,000 mls @ 1,000 mls/hr 11/24/23 03:15 11/24/23 04:44 0.9 % Sodium Chloride 1000 Ml IV 11/24/23 04:14 Infused .Q1H JAELYN Infusion Ketorolac Tromethamine 30 mg 11/24/23 02:51 11/24/23 03:07 Ketorolac 30 Mg/Ml Inj IVP 11/24/23 02:52 30 mg ONCE ONE Administration MDM - Headache MDM Narrative Medical decision making narrative: Life-threatening differential diagnosis include subarachnoid hemorrhage, meningitis, encephalitis, carbon monoxide poisoning, and intracerebral hemorrhage. Other differential diagnosis include but not limited to migraine, cluster headache, tension headache, [employer] vasculitis, mass lesion, temporal arteritis, click acute closed angle glaucoma, septal and trigeminal neuralgia, sinusitis, closed head injury, and stroke. I did review she has been here twice in 2023, medications that normally work for her are Reglan, Toradol Benadryl, plus or minus dexamethasone. Given what I see in her rather typical nature of her presentation I do not think that she needs and a lumbar puncture or neuro imaging. She typically calls her mom or sister to come get her drive her home. Differential Diagnosis Differential diagnosis: Likely migraine, tension headache, subarachnoid hemorrhage, headache, meningitis, sinusitis and postconcussion syndrome Medical Records Attestation: I reviewed the patient's medical records. Discharge Plan Discharge Clinical Impression: Migraine Patient Disposition: Home w/ Parent or Adult Condition: Stable Instructions: Migraine Headache (ED) Additional Instructions: Home rest sleep, return if any signs symptoms of worsening. I went over these with you such as fevers, intractable vomiting, neurologic symptoms which may include weakness, vision change or slurred speech. May want with find referral to Neurology if consideration of other treatments or medications to cut down the frequency. Activity Level: Light activity Discharge Diet: Regular Prescriptions: No Action sumatriptan succinate 100 mg tablet 100 mg PO Q2H PRN Patient Comments: TAKE 1 TABLET BY MOUTH TWICE DAILY NEEDED FOR MIGRAINE. GIVE AT A MINIUMUM OF 2 HOURS APART. MAX DOSE 200MG PER 24 HOURS amitriptyline 50 mg tablet 50 mg PO HS sumatriptan [Imitrex] 20 mg/actuation spray,non-aerosol 20 mg intranasal Q2H PRN (Reason: migraine headache) Qty: 6 1RF Rx Instructions: administer into one nostril as a single dose; if 2nd dose needed,administer into other nostril after at least 2 hrs, NTE 2 doses (40 mg) per episode Follow Up/Referrals: Xenia Cruz MD [Primary Care Provider] - Stand Alone Forms: [employer] Info Instructions
[2023-11-24] MEDS: 0.9 % SODIUM CHLORIDE 1000 ml 1,000 ML IV ×2 (03:07→04:12)
[2023-11-24] MEDS: KETOROLAC 30 MG/ML inj IVP (03:07)
[2023-11-24] MEDS: METOCLOPRAMIDE HCL 10 MG in 0.9 % SODIUM CHLORIDE 100 ml 100 ML 306 MG IVPB (03:07)
[2023-11-24] MEDS: dexAMETHasone 10 MG in 0.9 % SODIUM CHLORIDE 100 ml 100 ML 404 MG IVPB (03:08)
[2023-11-24] MEDS: diphenhydrAMINE 50 MG in 0.9 % SODIUM CHLORIDE 100 ml 100 ML 404 MG IVPB (03:08)
== END 2023-11-24 04:46 | disposition home or self-care (01) ==
PROVIDERS: Emergency Provider Family Medicine; PCP Family Medicine
DX: G43.909 Migraine, unspecified, not intractable, without status migrainosus (principal)
CPT/HCPCS: 96365; 96366; 96375; 99284; J1100; J1200; J1885; J2765; J7030

== ENCOUNTER 2023-12-08 06:56 | Outpatient (CLI) | payer BC, SELFPAY ==
--- NOTE | 2023-12-08 08:41 | W.ANESCHARGE ---
Anesthesia Charges Start Date/Time Anesthesia Start Date: 12/08/23 Anesthesia Start Time: 08:16 Stop Date/Time Anesthesia Stop Date: 12/08/23 Anesthesia Stop Time: 08:39
--- NOTE | 2023-12-08 09:13 | W.ANESCHARGE ---
Anesthesia Charges Start Date/Time Anesthesia Start Date: 12/08/23 Anesthesia Start Time: 08:16 Stop Date/Time Anesthesia Stop Date: 12/08/23 Anesthesia Stop Time: 08:39
== END 2023-12-08 06:57 | disposition home or self-care (01) ==
LOC: OP CLINIC 06:57
PROVIDERS: PCP Family Medicine; Visit Provider Internal Medicine Gastroenterology
DX: Z12.11 Encounter for screening for malignant neoplasm of colon (principal); K63.5 Polyp of colon
CPT/HCPCS: 00811; 45385; 88305; J2704

== ENCOUNTER 2023-12-20 08:50 | Emergency (ER) | payer BC, SELFPAY ==
[2023-12-20 09:01] VITALS: BP 115/82; PULSE 97; RESP 18; TEMP 36.3; O2SAT 100; BMI 21.3
--- NOTE | 2023-12-20 09:33 | ED_ITS ---
HPI - Headache General Date Seen: 12/20/23 Chief Complaint: Headache/Migraine Stated Complaint: migraine Time Seen by Provider: 12/20/23 09:18 Source: patient Mode of arrival: ambulatory Limitations: no limitations History of Present Illness HPI Narrative: Patient is a 53-year-old female presenting to emergency department for a migraine. She states she has had migraines like this multiple times before. She has had to come to this emergency department multiple times for these migraines. She usually gets a migraine cocktail and her symptoms resolved. Typically she takes Imitrex at home but her injector broke so she was unable to take it. Tip with the Imitrex. The migraine. This migraine occurred in the middle the night and woke her up from sleep. Currently admits to photophobia and phonophobia. Denies vision changes, weakness, lightheadedness, dizziness. Denies any recent head trauma. Again states this headache is just like her previous migraines. Is currently nauseated and had episode of emesis prior to arrival. No other concerns noted at this time. Related Data Home Medications Medication Instructions Recorded Confirmed amitriptyline 50 mg tablet 50 mg PO HS 06/06/22 12/20/23 sumatriptan succinate 100 mg tablet 100 mg PO Q2H PRN 06/06/22 11/24/23 Previous Rx's Medication Instructions Recorded sumatriptan 20 mg/actuation nasal 20 mg intranasal Q2H PRN migraine 10/17/23 spray (Imitrex) headache #6 ea Allergies Allergy/AdvReac Type Severity Reaction Status Date / Time amoxicillin AdvReac Gastrointestinal Verified 11/24/23 02:41 Upset Review of Systems Status of ROS: Reports: 10 or more systems reviewed and unremarkable except as noted in History and below [facility] Medical History Tobacco dependence ?F17.200 - Nicotine dependence, unspecified, uncomplicated (ICD-10) History of suicidal ideation ?Z86.59 - Personal history of other mental and behavioral disorders (ICD-10) History of substance abuse ?F19.11 - Other psychoactive substance abuse, in remission (ICD-10) Migraines ?G43.909 - Migraine, unspecified, not intractable, without status migrainosus (ICD-10) Cold sore ?B00.1 - Herpesviral vesicular dermatitis (ICD-10) Major depressive disorder ?F32.9 - Major depressive disorder, single episode, unspecified (ICD-10) Surgical History History of laparoscopic-assisted vaginal hysterectomy ?Z90.710 - Acquired absence of both cervix and uterus (ICD-10) History of ?Z98.891 - History of uterine scar from previous surgery (ICD-10) Social History Smoking Status: Current every day smoker What tobacco products do you use: cigarettes Smoking packs per day: 0.2 Smoking cigarettes per day: 4.0 Do you use any of these nicotine containing products: E-Cigarettes and Vaping Products Second hand tobacco smoke exposure: No How often do you have a drink containing alcohol: never How often do you have six or more drinks on one occasion: Never AUDIT-C Alcohol total score: 0 Non-prescribed substance use: former substance user Non-prescribed substance use details: meth Caffeine: Yes (soda, coffee) service: No Exam Narrative: Exam Narrative: Const: Well-nourished, Well-developed, in mild distress Eyes: PERRL, no conjunctival injection, and symmetrical lids HENT: Atraumatic external nose and ears. Moist mucous membranes. Neck: Symmetric, trachea midline, No thyromegaly. CVS: RRR, No murmurs or gallops. Peripheral pulses 2+ and equal in all extremities RESP: Unlabored respiratory effort. Clear to auscultation bilaterally. GI: Nontender/Nondistended, No rebound or guarding. MSK:Extremities w/o deformity, Normal Active ROM Skin: Warm, Dry. No rashes or lesions. Neuro: Normal Muscle tone, No focal neurological deficits. Psych: Awake, Alert, & Oriented x3. Appropriate mood and affect. Const: Vital Signs, click to edit/add: Vital Signs - 24 hr 12/20/23 09:01 Temperature 97.3 F L Pulse Rate [Right Pulse Oximeter] 97 Respiratory Rate 18 Blood Pressure [Ri ght Upper Arm] 115/82 Pulse Oximetry 100 Oxygen Delivery Me thod Room Air Course Vital Signs Vital signs: Initial Vital Signs Temperature 97.3 F L 12/20/23 09:01 Temperature Source Temporal Artery Scan 12/20/23 09:01 Pulse Rate 97 12/20/23 09:01 Respiratory Rate 18 12/20/23 09:01 Blood Pressure 115/82 12/20/23 09:01 Blood Pressure Mean 93 12/20/23 09:01 Blood Pressure Position Sitting 12/20/23 09:01 Pulse Oximetry 100 12/20/23 09:01 Oxygen Delivery Method Room Air 12/20/23 09:01 Vital Signs Temperature 97.3 F L 12/20/23 09:01 Pulse Rate 97 12/20/23 09:01 Respiratory Rate 18 12/20/23 09:01 Blood Pressure 115/82 12/20/23 09:01 Pulse Oximetry 100 12/20/23 09:01 Oxygen Delivery Method Room Air 12/20/23 09:01 Temperature 97.3 F L 12/20/23 09:01 Pulse Rate 97 12/20/23 09:01 Respiratory Rate 18 12/20/23 09:01 Blood Pressure 115/82 12/20/23 09:01 Pulse Oximetry 100 12/20/23 09:01 Oxygen Delivery Method Room Air 12/20/23 09:01 Medications Administered Medications: Discontinued Medications Generic Name Dose Route Start Last Admin Trade Name Freq PRN Reason Stop Dose Admin Diphenhydramine HCl 25 mg 12/20/23 09:17 12/20/23 09:46 Diphenhydramine 50 Mg/Ml Inj IVP 12/20/23 09:18 25 mg ONCE ONE Administration Lactated Ringer's 1,000 mls @ 1,000 mls/hr 12/20/23 09:17 12/20/23 09:46 Lactated Ringers 1000 Ml IV 12/20/23 10:16 1,000 mls/hr .Q1H ONE Administration Ketorolac Tromethamine 15 mg 12/20/23 09:17 12/20/23 09:46 Ketorolac 15 Mg/Ml Inj IVP 12/20/23 09:18 15 mg ONCE ONE Administration Metoclopramide HCl 10 mg 12/20/23 09:17 12/20/23 09:46 Metoclopramide Hcl 5 Mg/Ml Inj IVP 12/20/23 09:18 10 mg ONCE ONE Administration MDM - Headache MDM Narrative Medical decision making narrative: Patient is a 53-year-old female presenting for a migraine. Concerned this is just like her previous migraines I not believe is necessary to do any head imaging or further workup. I will treat her with a migraine cocktail which has helped her in the past. She is agreeable to this plan. She has been much better after the migraine cocktail. She is otherwise doing well at this time and can be safely discharged home. She states she this has another prescription for Imitrex at home does not need another 1. Discharge Plan Discharge Clinical Impression: Migraine Qualifiers: Migraine type: unspecified Status migrainosus presence: without status migrainosus Intractability: not intractable Qualified Code(s): G43.909 - Migraine, unspecified, not intractable, without status migrainosus Patient Disposition: Home, Self-Care Condition: Improved Instructions: Migraine Headache (ED) Additional Instructions: User home migraine medication. Return to emergency department for new or worsening symptoms Prescriptions: No Action sumatriptan succinate 100 mg tablet 100 mg PO Q2H PRN Patient Comments: TAKE 1 TABLET BY MOUTH TWICE DAILY NEEDED FOR MIGRAINE. GIVE AT A MINIUMUM OF 2 HOURS APART. MAX DOSE 200MG PER 24 HOURS amitriptyline 50 mg tablet 50 mg PO HS sumatriptan [Imitrex] 20 mg/actuation spray,non-aerosol 20 mg intranasal Q2H PRN (Reason: migraine headache) Qty: 6 1RF Rx Instructions: administer into one nostril as a single dose; if 2nd dose needed,administer into other nostril after at least 2 hrs, NTE 2 doses (40 mg) per episode Follow Up/Referrals: Xenia Cruz MD [Primary Care Provider] - Stand Alone Forms: [employer] Info Instructions
[2023-12-20] MEDS: diphenhydrAMINE 50 MG/ML inj 25 MG IVP (09:46)
[2023-12-20] MEDS: KETOROLAC 15 MG/ML inj IVP (09:46)
[2023-12-20] MEDS: METOCLOPRAMIDE HCL 5 MG/ML INJ 10 MG IVP (09:46)
[2023-12-20] MEDS: LACTATED RINGERS 1000 ML 1,000 ML IV (09:46)
[2023-12-20 10:54] VITALS: BP 112/78; PULSE 68; RESP 18; O2SAT 98
== END 2023-12-20 10:55 | disposition home or self-care (01) ==
PROVIDERS: Emergency Provider Student in an Organized Health Care Education/Training Program; PCP Family Medicine
DX: G43.909 Migraine, unspecified, not intractable, without status migrainosus (principal)
CPT/HCPCS: 96374; 96375; 99282; 99283; J1200; J1885; J2765; J7120

== ENCOUNTER 2024-03-02 06:06 | Emergency (ER) | payer BC, SELFPAY ==
[2024-03-02 06:16] VITALS: BP 118/87; PULSE 86; RESP 20; TEMP 35.8; O2SAT 99; BMI 22.1
[2024-03-02] MEDS: FLUORESCEIN SODIUM TOPICAL STRIP 1 STRIP EYE-LEFT (06:49)
[2024-03-02] MEDS: ERYTHROMYCIN OPHTH OINT 3.5 GM 1 APPLIC EYE-LEFT (06:49)
[2024-03-02] MEDS: TETRACAINE 0.5% OPHTH 2 DROP EYE-LEFT (06:49)
--- NOTE | 2024-03-02 06:53 | ED.GENADULT ---
HPI - General Adult General Chief complaint: Eye Problems Stated complaint: something in left eye Time Seen by Provider: 03/02/24 06:16 Source: patient Mode of arrival: ambulatory Limitations: no limitations History of Present Illness HPI narrative: 53-year-old female presents to the emergency department for the 8th time this year for evaluation this time of left eye pain and watering. Awoke with symptoms in the middle of the night. Wonders if she has a foreign body does have a foreign body sensation. No loss of visual acuity. Nursing team did check visual acuity prior to my encounter during triage and her acuity is normal and actually better in the affected eye than the unaffected eye. No purulent drainage, no headache, no fever, no trauma or injury noted. Does wear contacts, does not currently have them in. Reports that she has had similar symptoms in the past and was told that her eyelash had scratched her eye. She does not quite remember what treatment was given. Past medical history notable for mental health issues, reports that her medications are listed is accurate. Allergy to amoxicillin. ROS notable for the HEENT symptoms as above only, otherwise negative for other skin, generalized or HEENT changes. Related Data Home Medications ?Medication ?Instructions ?Recorded ?Confirmed amitriptyline 50 mg tablet 50 mg PO HS 06/06/22 03/02/24 sumatriptan succinate 100 mg tablet 100 mg PO Q2H PRN 06/06/22 03/02/24 aripiprazole 10 mg tablet 10 mg PO DAILY 03/02/24 03/02/24 sumatriptan succinate 6 mg/0.5 mL mg subcut 03/02/24 subcutaneous pen injector (Imitrex STATdose Pen) Previous Rx's ?Medication ?Instructions ?Recorded sumatriptan 20 mg/actuation nasal 20 mg intranasal Q2H PRN migraine 10/17/23 spray (Imitrex) headache #6 ea Allergies Allergy/AdvReac Type Severity Reaction Status Date / Time amoxicillin AdvReac Gastrointestinal Verified 03/02/24 06:19 Upset [facility] Medical History Tobacco dependence ?F17.200 - Nicotine dependence, unspecified, uncomplicated (ICD-10) History of suicidal ideation ?Z86.59 - Personal history of other mental and behavioral disorders (ICD-10) History of substance abuse ?F19.11 - Other psychoactive substance abuse, in remission (ICD-10) Migraines ?G43.909 - Migraine, unspecified, not intractable, without status migrainosus (ICD-10) Cold sore ?B00.1 - Herpesviral vesicular dermatitis (ICD-10) Major depressive disorder ?F32.9 - Major depressive disorder, single episode, unspecified (ICD-10) Surgical History History of laparoscopic-assisted vaginal hysterectomy ?Z90.710 - Acquired absence of both cervix and uterus (ICD-10) History of ?Z98.891 - History of uterine scar from previous surgery (ICD-10) Social History Smoking Status: Current every day smoker What tobacco products do you use: cigarettes Smoking packs per day: 0.2 Smoking cigarettes per day: 4.0 Do you use any of these nicotine containing products: E-Cigarettes and Vaping Products Second hand tobacco smoke exposure: No How often do you have a drink containing alcohol: never How often do you have six or more drinks on one occasion: Never AUDIT-C Alcohol total score: 0 Non-prescribed substance use: former substance user Non-prescribed substance use details: meth Caffeine: Yes (soda, coffee) service: No Exam Const: Vital Signs, click to edit/add: Vital Signs - 24 hr 03/02/24 06:16 Temperature 96.5 F L Pulse Rate [Right Pulse Oximeter] 86 Respiratory Rate 20 Blood Pressure [Le ft Upper Arm] 118/87 Pulse Oximetry 99 Oxygen Delivery Me thod Room Air Documenting provider has reviewed patient's vital signs: yes Common normals: no apparent distress and alert General appearance: cooperative and well kempt HENMT: Common normals: normocephalic and moist oral mucous membranes Head and scalp: normocephalic Eye: Common normals: PERRL and EOMs intact bilaterally Pupil: PERRL Other: Right side normal, left conjunctiva are slightly injected. Visual examination of the eyes shows no evidence of foreign body or trauma. No purulent drainage. Neck & C-Spine: General: normal visual inspection Resp: Common normals: normal respiratory effort Effort & inspection: able to speak in complete sentences Neuro: Sensorium/orientation: alert Speech: speech normal Gait (neuro): normal gait Motor exam: no movement abnormalities noted Psych: Appearance: well kempt Activity/motor behavior: appropriate eye contact Mood and affect: euthymic mood Skin: Common normals: no rashes or lesions noted General skin exam: no rashes or lesions noted Course Course ED Course: Normal visual acuity, foreign body sensation, no obvious foreign body on initial inspection. Recommended fluorescence staining. Two drops of tetracaine were placed into the left eye with good numbing. Fluorescein eye strip inserted with good illumination. With this a pinpoint area lytes up right in the horizontal center of the cornea. No other affected areas. Visual sweep shows no further foreign bodies. Counseled patient that this could just be an unusual shape for a scratch but I am more concerned that it is a small foreign body. With a sterile swab moistened with sterile saline, I gently but oft over the lesion and the lighted area did transfer on to my swab. It did seem as though this removed the foreign body. Eye was then rinsed of the fluorescent and erythromycin ointment was applied. Patient counseled on care. Small foreign body and corneal abrasion. Will continue with the erythromycin ointment 4 times daily for the next 48 hours. If symptoms have not completely resolved in 48 hours, she should make a follow-up appointment at [facility]. Contact information provided. She was sent home with the appropriately labeled erythromycin ointment for use. Keep her contacts out for a couple of days but may reuse on . May return to work as usual tomorrow. Okay to use Tylenol and or ibuprofen as needed for mild discomfort. Alarm symptoms reviewed that would warrant ED presentation. Vital Signs Vital signs: Initial Vital Signs Temperature 96.5 F L 03/02/24 06:16 Temperature Source Temporal Artery Scan 03/02/24 06:16 Pulse Rate 86 03/02/24 06:16 Pulse Rhythm Regular 03/02/24 06:16 Respiratory Rate 20 03/02/24 06:16 Blood Pressure 118/87 03/02/24 06:16 Blood Pressure Mean 97 03/02/24 06:16 Blood Pressure Position Sitting 03/02/24 06:16 Pulse Oximetry 99 03/02/24 06:16 Oxygen Delivery Method Room Air 03/02/24 06:16 Vital Signs Temperature 96.5 F L 03/02/24 06:16 Pulse Rate 86 03/02/24 06:16 Respiratory Rate 20 03/02/24 06:16 Blood Pressure 118/87 03/02/24 06:16 Pulse Oximetry 99 03/02/24 06:16 Oxygen Delivery Method Room Air 03/02/24 06:16 Temperature 96.5 F L 03/02/24 06:16 Pulse Rate 86 03/02/24 06:16 Respiratory Rate 20 03/02/24 06:16 Blood Pressure 118/87 03/02/24 06:16 Pulse Oximetry 99 03/02/24 06:16 Oxygen Delivery Method Room Air 03/02/24 06:16 Medications Administered Medications: Discontinued Medications Generic Name Dose Route Start Last Admin Trade Name Bobq PRN Reason Stop Dose Admin Erythromycin 1 applic 03/02/24 06:44 03/02/24 06:49 Erythromycin Ophth Oint 3.5 Gm EYE-LEFT 03/02/24 06:45 1 applic ONCE ONE Administration Fluorescein Sodium 1 strip 03/02/24 06:44 03/02/24 06:49 Fluorescein Sodium Topical Strip EYE-LEFT 03/02/24 06:45 1 strip ONCE ONE Administration Tetracaine HCl 2 drop 03/02/24 06:44 03/02/24 06:49 Tetracaine 0.5% Ophth EYE-LEFT 03/02/24 06:45 2 drop ONCE ONE Administration Discharge Plan Discharge Clinical Impression: Corneal abrasion Patient Disposition: Home, Self-Care Condition: Stable Instructions: Corneal Abrasion (DC) Additional Instructions: As we discussed, you had a pinpoint scratch in the center of your left cornea. I was concerned that this could be a small foreign body and but it with a sterile Q-tip and the spot did seem to come off. This is a good sign. To prevent infection and for soothing properties, I have started you on erythromycin antibiotic ointment. Apply this 4 times daily, about every 3 hours while you are awake for the next 48 hours. Your eye should feel completely better within 48 hours. If it does not, please make a follow-up appointment at [facility] on the [facility] for an urgent checkup. If you have sudden visual loss or worsening of symptoms, please follow-up with an eye doctor or return to the emergency department if needed. You should be good to work within 12 hours. It is okay to use Tylenol and/or ibuprofen if needed for mild discomfort as well.. Activity Level: No Restrictions Discharge Diet: Regular Prescriptions: No Action sumatriptan succinate 100 mg tablet 100 mg PO Q2H PRN Patient Comments: TAKE 1 TABLET BY MOUTH TWICE DAILY NEEDED FOR MIGRAINE. GIVE AT A MINIUMUM OF 2 HOURS APART. MAX DOSE 200MG PER 24 HOURS amitriptyline 50 mg tablet 50 mg PO HS sumatriptan [Imitrex] 20 mg/actuation spray,non-aerosol 20 mg intranasal Q2H PRN (Reason: migraine headache) Qty: 6 1RF Rx Instructions: administer into one nostril as a single dose; if 2nd dose needed,administer into other nostril after at least 2 hrs, NTE 2 doses (40 mg) per episode sumatriptan succinate [Imitrex STATdose Pen] 6 mg/0.5 mL pen injector subcut aripiprazole 10 mg tablet 10 mg PO DAILY Follow Up/Referrals: Xenia Cruz MD [Primary Care Provider] - Stand Alone Forms: [employer] Info Instructions
== END 2024-03-02 06:58 | disposition home or self-care (01) ==
LOC: ED 06:54
PROVIDERS: Emergency Provider Family Medicine; PCP Family Medicine
DX: S05.02XA Injury of conjunctiva and corneal abrasion without foreign body, left eye, initial encounter (principal)
CPT/HCPCS: 99283; A9270